=== PATIENT | male | born 1950 | race Caucasian/White ===

== ENCOUNTER → 2016-11-10 | Day surgery (SDC) | payer OTHER ==
[2016-10-28 12:41] LABS: BASO % 0.2 %; BASO ABS # 0.02 K/uL (0-0.2); COMPLETE YES; EOS % 1.7 %; HEMATOCRIT 41.8 % (42-52); IG% 0.5 %; LYMPH % 22.1 %; LYMPH ABS # 2.19 K/uL (1.2-3.4); MEAN CELL VOLUME 94.8 fL (80-100); MEAN CORPUSCULAR HEMOGLOBIN 31.1 pg (25-34); MEAN CORPUSCULAR HGB CONC 32.8 g/dl (32-36); MEAN PLATELET VOLUME 9.6 fL (7.4-10.4); MONO % 6.5 %; PLATELET COUNT 190 K/uL (130-400); RED BLOOD COUNT 4.41 M/uL (4.7-6.1); WHITE BLOOD COUNT 9.93 K/uL (4.8-10.8)
[2016-10-28 12:44] LABS: URINE APPEARANCE CLOUDY (CLEAR); URINE BILIRUBIN NEG (NEG); URINE COLOR DK YELLOW; URINE EPITHELIAL CELL AUTO >30 /lpf (0-5); URINE NITRITE NEG (NEG); URINE SPECIFIC GRAVITY 1.015 (1.000-1.030); UROBILINOGEN NEG (NEG)
[2016-10-28 12:45] LABS: MANUAL MICROSCOPIC REQUIRED? NO; REVIEW REQ? YES
[2016-10-28 12:50] VITALS: BMI 39.0
--- NOTE | 2016-10-28 13:25 | PAT Medication Instructions ---
Service Date Oct 28, 2016. Current Home Medication List Aspirin (Aspirin Ec Lo-Dose), 81 MG PO HS Atorvastatin (Lipitor), 40 MG PO HS B-Complex W/Biotin & Folic Aci (Vitamin B50 Complex Tr), 1 TAB PO BID Cholecalciferol (Vitamin D3), 5,000 INTERUNIT PO QAM Clopidogrel (Plavix), 75 MG PO QAM Coenzyme J16-Sugmzhkattwwz (Co Q-10 Plus), 1 CAPSULE PO BID Hlkjvxoo-Eksnktpbxwy-Cmtwfxwzq (Hyaluronic Acid), 1 CAP PO BID Fish Oil ([place]-3), 1 CAP PO QAM Metoprolol Tartrate (Lopressor), 100 MG PO QAM Multivitamin (Multivitamin), 1 TAB PO QAM Ranitidine Hcl (Zantac), 150 MG PO BID [Move Free Joint Supp], 1 CAP PO QAM Medication Instructions For Your Scheduled Surgery - Per surgeon's instructions: Aspirin (Aspirin Ec Lo-Dose), 81 MG PO HS Clopidogrel (Plavix), 75 MG PO QAM - Hold the following medications as of 10/29/15: [Move Free Joint Supp], 1 CAP PO QAM Fish Oil ([place]-3), 1 CAP PO QAM Coenzyme Z31-Gkvwutbtgwbpg (Co Q-10 Plus), 1 CAPSULE PO BID Lvjqanpf-Sduuyxjlsrg-Auakjcbbd (Hyaluronic Acid), 1 CAP PO BID - Hold the following medications the morning of surgery: B-Complex W/Biotin & Folic Aci (Vitamin B50 Complex Tr), 1 TAB PO BID Cholecalciferol (Vitamin D3), 5,000 INTERUNIT PO QAM Multivitamin (Multivitamin), 1 TAB PO QAM - Take the following medications the morning of surgery with a sip of water OTHERWISE NOTHING TO EAT OR DRINK AFTER MIDNIGHT: Ranitidine Hcl (Zantac), 150 MG PO BID Metoprolol Tartrate (Lopressor), 100 MG PO QAM - Take the following medications as scheduled the night before surgery: Ranitidine Hcl (Zantac), 150 MG PO BID Atorvastatin (Lipitor), 40 MG PO HS B-Complex W/Biotin & Folic Aci (Vitamin B50 Complex Tr), 1 TAB PO BID If you have any questions please call us at [phone] (Majo West PA-C) or [phone] or [phone]
[2016-10-28 13:27] LABS: BUN/CREATININE RATIO 16.4 (10-20); CALCIUM 9.2 mg/dl (8.5-10.1); CREATININE 1.1 mg/dl (0.60-1.40); POTASSIUM 4.1 mmol/L (3.5-5.1)
[~2016-11-10] VITALS: Ht 185.4 cm; Wt 134.4 kg
[~2016-11-10] MED LIST: ASPI81TA57 PO; ATOR-24 PO; ATROPINE SULFATE 0.1 MG/ML 5ML SYR IV PRN; B-CO1CAP3 PO; B-CO1TAB21 PO; CHOL20007 PO; CHOLCAP5 PO; CIPROFLOXACIN / D5W 400 MG IV SCH; CLOP1TAB15 PO; COEN100C7 PO; COEN1CAP PO; COLL1CAP PO; CONRAY 60% 50 ML VIAL INSTIL ONE; DEXAMETHASONE SOD INJ 4 MG/ML VIAL ONE; EpHEDrine SULFATE 50MG/5ML SYR ONE; EpHEDrine SULFATE INJ 50 MG/ML AMP IV PRN; FAMO20TA PO; FENTANYL CITRATE INJ 50 MCG/1 ML 2 ML VIAL IV PRN; FENTANYL CITRATE INJ 50 MCG/1 ML 2 ML VIAL ONE; FLUMAZENIL 0.1 MG/1 ML 10 ML VIAL IV PRN; GLUC1CAP33 PO; GLYCOPYRROLATE INJ 0.2 MG/ML VIAL ONE; HYDROmorphone INJ 2 MG/ML SYR/VIAL IV PRN; LABETALOL HCL IV 5 MG/ML 20ML IV PRN; LACTATED RINGER'S 1000ML 1,000 ML IV SCH; LIDOCAINE HCL 2% 2 ML VIAL (20MG/ML) ONE; LPT/40 PO; MEPERIDINE HCL 25 MG/ML CARP IV PRN; METO-596 PO; METO25TA3 PO; MIDAZOLAM HCL 1 MG/ML 2ML VIAL ONE; MOVE FREE JOINT PO; MULT-506 PO; NALOXONE HCL 0.4 MG/1 ML VIAL/CARP IV PRN; NEOMYCIN/POLYMYX/BACITR OINT 15 GM TUBE TOP ONE; NEOSTIGMINE METHYLSULFATE 5 MG/5 ML SYR ONE; OMEG10007 PO; ONDANSETRON INJ 2 MG/ML 2 ML VIAL IV PRN; ONDANSETRON INJ 2 MG/ML 2 ML VIAL ONE; OXYC-57 PO; OXYCODONE/ACETAMINOPHEN 5-325 TAB PO PRN; PHENYLEPHRINE 100MCG/ML 5ML SYR IV PRN; PHENYLEPHRINE 100MCG/ML 5ML SYR ONE; PHENYLEPHRINE HCL INJ 10 MG/ML VIAL ONE; PROPOFOL IV EMULSION 10 MG/ML 20 ML VIAL IV ONE; RANI150T3 PO; ROCURONIUM BROMIDE 10 MG/ML 5 ML VIAL ONE; [UNRECOGNIZED DRUG - OTHER]
[2016-11-10 08:52] VITALS: BP 132/71; PULSE 76; TEMP 37; O2SAT 97; Ht 185.4 cm; Wt 134.4 kg
--- NOTE | 2016-11-10 09:38 | History & Physical Bridge Note ---
H&P Re-Evaluation Bridge Note: I have examined the patient, reviewed the History & Physical and in the interval since the performance of the History & Physical I have noted the following changes of clinical significance: No changes noted
--- NOTE | 2016-11-10 11:33 | [facility] Post Operative Brief Note ---
Immediate Operative Summary Operative Date Nov 10, 2016. Pre-Operative Diagnosis Prostate cancer Post-Operative Diagnosis Prostate cancer Procedure(s) Performed Volume/brachy Therapy Surgeon Dr. Oliver Shear Tender Surgeon(s) Dr. Nereida Field Estimated Blood Loss 0ml Findings small gland Specimens No pathology specimens per surgeon
--- NOTE | 2016-11-10 11:36 | Discharge Instructions ---
Discharge Instructions Visit Reason for Visit: Prostate Cancer Discharge Discharge Diagnosis / Problem: prostate cancer Discharge Goals Goal(s): Therapeutic intervention Activity Recommendations Activity Limitations: per Instructions/Follow-up section (see radiation saftey sheet you got in radiation oncology take it easy today) Anesthesia . Post Anesthesia Instructions: If you have had General Anesthesia or IV Sedation: * Do not drive today. * Resume driving when surgeon permits. * Do not make important decisions or sign legal documents today. * Call surgeon for: 1. Temperature elevations greater than 101 degrees F. 2. Uncontrollable pain. 3. Excessive bleeding. 4. Persistent nausea and vomiting. 5. Medication intolerance (nausea, vomiting or rash). * For nausea and vomiting use only clear liquids such as: tea, soda, bouillon until nausea subsides, then gradually increase diet as tolerated. * If you have any concerns or questions, call your surgeon's office. If physician is unavailable and it is an emergency, call 911 or go to the nearest emergency room. . Diet Recommendations Recommended Home Diet: resume previous diet Procedures Procedures Performed: Volume/brachy Therapy Pending Studies Studies pending at discharge: yes List of pending studies: pt to go to radiation oncology befor going home Medical Emergencies . Who to Call and When: Medical Emergencies: If at any time you feel your situation is an emergency, please call 911 immediately. . Non-Emergent Contact Non-Emergency issues call your: Urologist . . "Provider Documentation" section prepared by Lyndon Oliver. [facility] Monitoring Program Search Results: patient reviewed within database
--- NOTE | 2016-11-10 11:39 | DIAGNOSTIC IMAGING REPORT ---
FLUOROSCOPIC SPOT FILM OF THE PELVIS CLINICAL HISTORY: BRACHY THERAPY prostate carcinoma COMPARISON STUDY: No previous studies for comparison. FINDINGS: A single intraoperative fluoroscopic spot images provided for interpretation. 2 seconds of fluoroscopic time was utilized. There is a Belle catheter within the bladder. There is contrast in the bladder. Multiple brachytherapy prostate radiation therapy seeds are visualized IMPRESSION: Intraoperative fluoroscopic spot image as described above. Electronically signed by: Luis Johnson M.D. 11/10/2016 11:37 AM Dictated Date/Time: 11/10/2016 11:37 AM
--- NOTE | 2016-11-10 12:16 | Anesthesiology Progress Note ---
Anesthesia Post Op Note Date & Time Nov 10, 2016 at 12:16 Vital Signs Pain Intensity: 0 Vital Signs Past 12 Hours Date Time Temp Pulse Resp B/P Pulse Ox O2 Delivery O2 Flow Rate FiO2 11/10/16 12:08 36.3 20 121/71 96 Nasal Cannula 2 11/10/16 11:58 110/77 11/10/16 11:55 78 17 92 11/10/16 11:55 78 17 11/10/16 11:53 123/78 11/10/16 11:50 81 20 11/10/16 11:50 81 20 91 11/10/16 11:49 81 23 90 11/10/16 11:49 81 23 11/10/16 11:48 121/77 11/10/16 11:44 83 23 11/10/16 11:44 82 23 95 11/10/16 11:43 125/78 11/10/16 11:42 36.2 82 16 119/74 99 Mask 10 11/10/16 11:39 79 24 11/10/16 11:39 79 24 100 11/10/16 11:38 111/68 11/10/16 11:34 80 22 117/75 100 11/10/16 11:34 79 22 11/10/16 08:52 37 76 18 132/71 97 Room Air Notes Mental Status: alert / awake / arousable, participated in evaluation Pt Amnestic to Procedure: Yes Nausea / Vomiting: adequately controlled Pain: adequately controlled Airway Patency, RR, SpO2: stable & adequate BP & HR: stable & adequate Hydration State: stable & adequate Anesthetic Complications: no major complications apparent
[2016-11-10 12:30] VITALS: BP 117/69; PULSE 72; TEMP 36.4; O2SAT 98
[2016-11-10 12:58] VITALS: BP 119/74; PULSE 77; TEMP 36.8; O2SAT 94
[2016-11-10 13:30] VITALS: BP 112/64; PULSE 76; TEMP 36.8; O2SAT 95
--- NOTE | 2016-11-12 13:19 | OPERATIVE REPORT ---
DATE OF OPERATION: 11/10/2016 PREOPERATIVE DIAGNOSIS: PSA 11.5 biopsy stage T2c, [place] 4+5 adenocarcinoma of the prostate. POSTOPERATIVE DIAGNOSIS: PSA 11.5 biopsy stage T2c, [place] 4+5 adenocarcinoma of the prostate. PROCEDURE: Transperineal prostate brachytherapy with live dosimetry. FINDINGS: 16 mL gland. SURGEON: Dr. Oliver. PHYSICIST: Hang Conrad. RADIATION ONCOLOGIST: Dr. Jasmine. ANESTHESIA: General. DRAINS: Temporary Belle catheter in the bladder. COMPLICATIONS: None. SPECIMENS: None. INDICATIONS: The patient has been diagnosed with an adenocarcinoma of the prostate and has elected to undergo transperineal brachytherapy as part of his treatment and is being brought in now for the procedure. OPERATION AND FINDINGS: The patient was correctly identified and brought to the outpatient surgery suite. After the induction of an adequate level of anesthesia, the patient was placed in the dorsal lithotomy position. The patient's lower abdomen, genitalia, and perineum were then prepped with Hibiclens. A Belle catheter was then inserted per the urethra into the bladder using usual sterile technique and the urine was drained and then 100 mL of mixture of saline and iodinated contrast material was instilled through the Belle into the bladder. Aerated gel was then placed within the lumen of the catheter, and the catheter was then plugged. The patient's scrotum was then taped upward using a Steri-Drape to keep it out of the way of the perineum. A transrectal ultrasound probe was then gently inserted into the patient's rectum and attached to the brachytherapy sled, and adjustments were made to the brachytherapy sled using the template projected on the ultrasound screen to get the transrectal probe and the image of the prostate into the proper position. After getting the probe adjusted properly, the prostate was scanned from its base to its apex with the images being transmitted to the treatment planning computer. While the radiation oncologist and physicist were performing a live implant plan, empty needles were placed through the template and positioned in the prostate around the entire periphery of the prostate. Each needle was spaced approximately 1 cm apart from its neighbor and again this was done circumferentially around the prostate. At this point, Dr. Jasmine used a SRIDEVI applicator to place the seeds into the prostate through these peripherally placed needles with the number and position of the seeds based on the plan that had just been created. This was done live so live dosimetry was being calculated with each seed placement. After the peripheral seeds were placed and all the peripheral needles removed, the radiation oncologist and physicist then planned for the central needles and these needles were placed in their proper positions based on the plan. After completing this portion, again the case was turned over to Dr. Jasmine for placement of the central seeds. A total number of 14 needles were used to implant 38 CS 131 seeds. After completing the implant, a fluoroscopic image was taken to check to make sure that there were no seeds placed within the bladder and a final picture was taken of this. One final inspection was then done looking at the plan and the seed implant and after completion of this final inspection the transrectal probe was removed. The patient's bladder was drained through the Belle catheter. A Keno counter was used to check for any radioactivity remaining in the needles and in the urine. The Belle catheter was then left indwelling. The patient's perineum was then washed and dried, and an antibiotic ointment was applied. The patient tolerated the procedure well and was transferred to the Recovery Room in stable condition. I attest to the content of the Intraoperative Record and any orders documented therein. Any exceptio ns are noted below.
== END | disposition home or self-care (01) ==
LOC: C.ACU 08:22
PROVIDERS: ATTEND Urology
DX: C61 Malignant neoplasm of prostate (principal); E78.00 Pure hypercholesterolemia, unspecified; I10 Essential (primary) hypertension; N20.0 Calculus of kidney; Z98.890 Other specified postprocedural states

== ENCOUNTER → 2017-03-25 | Outpatient (CLI) | payer OTHER ==
[~2017-03-25] MED LIST changes: -ASPI81TA57 PO; -ATOR-24 PO; -ATROPINE SULFATE 0.1 MG/ML 5ML SYR IV PRN; -B-CO1TAB21 PO; -CHOL20007 PO; -CIPROFLOXACIN / D5W 400 MG IV SCH; -COEN1CAP PO; -CONRAY 60% 50 ML VIAL INSTIL ONE; -DEXAMETHASONE SOD INJ 4 MG/ML VIAL ONE; -EpHEDrine SULFATE 50MG/5ML SYR ONE; -EpHEDrine SULFATE INJ 50 MG/ML AMP IV PRN; -FENTANYL CITRATE INJ 50 MCG/1 ML 2 ML VIAL IV PRN; -FENTANYL CITRATE INJ 50 MCG/1 ML 2 ML VIAL ONE; -FLUMAZENIL 0.1 MG/1 ML 10 ML VIAL IV PRN; -GLYCOPYRROLATE INJ 0.2 MG/ML VIAL ONE; -HYDROmorphone INJ 2 MG/ML SYR/VIAL IV PRN; -LABETALOL HCL IV 5 MG/ML 20ML IV PRN; -LACTATED RINGER'S 1000ML 1,000 ML IV SCH; -LIDOCAINE HCL 2% 2 ML VIAL (20MG/ML) ONE; -MEPERIDINE HCL 25 MG/ML CARP IV PRN; -METO-596 PO; -MIDAZOLAM HCL 1 MG/ML 2ML VIAL ONE; -MOVE FREE JOINT PO; -NALOXONE HCL 0.4 MG/1 ML VIAL/CARP IV PRN; -NEOMYCIN/POLYMYX/BACITR OINT 15 GM TUBE TOP ONE; -NEOSTIGMINE METHYLSULFATE 5 MG/5 ML SYR ONE; -ONDANSETRON INJ 2 MG/ML 2 ML VIAL IV PRN; -ONDANSETRON INJ 2 MG/ML 2 ML VIAL ONE; -OXYC-57 PO; -OXYCODONE/ACETAMINOPHEN 5-325 TAB PO PRN; -PHENYLEPHRINE 100MCG/ML 5ML SYR IV PRN; -PHENYLEPHRINE 100MCG/ML 5ML SYR ONE; -PHENYLEPHRINE HCL INJ 10 MG/ML VIAL ONE; -PROPOFOL IV EMULSION 10 MG/ML 20 ML VIAL IV ONE; -RANI150T3 PO; -ROCURONIUM BROMIDE 10 MG/ML 5 ML VIAL ONE; -[UNRECOGNIZED DRUG - OTHER]
[2017-03-25 14:52] VITALS: BP 142/91; PULSE 70; TEMP 37; O2SAT 93
--- NOTE | 2017-03-25 16:34 | Radiation Oncology Follow-Up ---
Radiation Oncology Follow-Up Date of Visit Mar 25, 2017. (Elizabeth Mckeon PA-C) Reason For Visit One-month one-month follow-up (Elizabeth Mckeon PA-C) Radiation Completion Date 02/17/17 (Elizabeth Mckeon PA-C) Diagnosis (1) Prostate cancer Status: Acute Onset Date: 09/15/2016 Location: both lobes of the prostate Histology Subtype: adenocarcinoma Stage: ll Permanent Comment: STAGING: Adenocarcinoma, [place] 4 + 5, PSA 11.5, cT2c, group IIB, high risk -Prostate Volume - 23.14 cc -Biopsy Date - 09/15/2016 (Dr. Williamson) Initiation of hormonal suppression. Lupron 45 mg IM 10/23/2016 -Prostate seed implant - 11/10/2016 - 85 Gy -External beam radiation therapy - Completed 02/17/17. Received 45 Gy -Receiving concurrent long-term androgen deprivation therapy - 18 to 28 months total Last Edited By: Elizabeth Mckeon on March 01, 2017 13:50 (Elizabeth Mckeon PA -C) History of Present Illness Mr. Whelan is a 66 year old male who initially presented with an elevated PSA in May 2015 to 6.91. At that point, the patient did elect to undergo a repeat PSA which completed on 02/04/2016 and was 9.27. The patient then underwent shoulder surgery and then more recently he was seen in consultation by Dr. Williamson who recommended a transrectal ultrasound-guided biopsy. The patient underwent a transrectal ultrasound-guided biopsy on 09/15/2016 and pathology revealed prostate adenocarcinoma in 13/14 cores. The pathology revealed [place] 4+5 in multiple cores of perineural invasion. The patient is scheduled for a bone scan and CT abdomen/pelvis and both are currently pending. Dr. Williamson did discuss treatment options including surgery and radiation therapy. Dr. Williamson did offer to refer the patient to a robotic urologic surgeon for discussion of a robotic prostatectomy however the patient has deferred that consultation at this point. We are now seeing the patient in consultation to discuss the role of radiation therapy. Overall, the patient is doing relatively well. He denies any significant urinary symptoms. His IPSS score is 1/35. His EPIC QoL score is 4/60. He has minimal issues with potency at this point; he has expressed that that is not a significant priority for him at this point. He has no history of inflammatory bowel disease or TURP of the prostate gland. His options of treatment were reviewed with him. Ultimately his decision was to undergo treatment with tri-modality. He began hormone suppression. He then had a prostate seed implant followed by IMRT/IGRT. 38 seeds were placed and he received 85 Gy. With the IMRT he received 45 Gy. (Elizabeth Mckeon PA-C) Interim History He's been doing well over the past month. He does not require any medication to help with urination. His AUA score was 2. His AUA score at the end of treatment was 3. He completed and expanded prostate cancer index composite for clinical practice and gave a score of 0 12 and urinary incontinence symptoms. He gave a score of 0 12 and urinary irritation symptoms. He was score 0 of 12 bowel symptoms. He gave a score of 9 of 12 sexual symptoms. He gave a score 1 of 12 in hormonal vitality symptoms. His total was 10 of 60. He is on Lupron therapy and knows that this is causing the erectile dysfunction. He'll be due for his next injection at the end of March. He has mild hot flashes. He is concerned about insurance coverage for his future injections. (Elizabeth Mckeon PA-C) Allergies Coded Allergies: No Known Allergies (Verified , 11/10/16) Home Medications Scheduled Atorvastatin (Lipitor), 40 MG PO HS B-Complex Vitamins (B Complex), 1 CAP PO DAILY Cholecalciferol (Vitamin D3), 1 CAP PO DAILY Clopidogrel (Plavix), 75 MG PO DAILY Coenzyme Q10 (Ubidecarenone) (Coq10), 1 CAP PO BID Hdiqzlhr-Pjylqstshkz-Uoqvbmldk (Hyaluronic Acid), 1 CAP PO DAILY Famotidine (Acid Control Maximum Stre), 1 TAB PO BID Fish Oil ([place]-3), 1 CAP PO DAILY Glucosamine-Chondroitin (Glucosamine & Chondroitin 500-400 mg), 1 CAP PO DAILY Metoprolol Succinate (Toprol Xl), 1 TAB PO DAILY Multivitamin (Multivitamin), 1 TAB PO DAILY Review of Systems Gastrointestinal: Symptoms: WNL GI Comments: Constipation related to pain medicine use for left shoulder Oral: Symptoms: No Problems Respiratory: Symptoms: WNL Urinary: Symptoms: Incontinence, Nocturia Comments: Nocturia x 1-2, Urge Incontinence, See AUA & EPIC Skin: Symptoms: No Problems Additional Notes: He completed a distress management report and answered "no" to all questions. (Elizabeth Mckeon PA-C) Physical Exam Vital Signs Date Time Temp Pulse Resp B/P (MAP) Pulse Ox O2 Delivery O2 Flow Rate FiO2 03/25/17 14:52 37.0 70 16 142/91 93 Fatigue: None General Appearance: no apparent distress Eyes: normal inspection, EOMI ENT: normal ENT inspection, hearing grossly normal Neck: no adenopathy Respiratory/Chest: lungs clear, no respiratory distress, no accessory muscle use Cardiovascular: regular rate, rhythm, no gallop, no murmur Extremities: no pedal edema Neurologic/Psychiatric: no motor/sensory deficits, alert, normal mood/affect Skin: warm/dry (Elizabeth Mckeon PA-C) Laboratory Studies Test 03/25/17 15:35 (Elizabeth Mckeon PA-C) Assessment & Plan Plan: The patient was seen and examined by Dr. Hansen. A PSA was drawn today. He'll be notified as to results. He'll be due for his next Lupron injection at the end of March. The seed implant was performed with the assistance of Dr. Oliver. We are going to contact his office to see if they can follow through with his hormone suppression and follow-up. We asked him to return to our office in 6 months. Today we completed a cancer survivorship care plan. A copy of the document was given to the patient. He may call if he has any questions or concerns in the interim. (Elizabeth Mckeon PA-C) I agree with note created by Elizabeth Mckeon PA-C. I reviewed the patient's chart and information with her. I have examined and evaluated the patient. I reviewed relevant clinical information and answered the patient's and/or family' s questions. (Veeral. Hansen MD) Total Time In Follow-Up I spent 20 minutes speaking to the patient and performing examination. I spent 20 minutes reviewing information, preparing the survivorship document, and completing this note. (Elizabeth Mckeon PA-C) I spent 15 minutes examining and counseling the patient. (Veeral. Hansen MD) Copy To Dalton Hylton M.D. ([facility])
== END | disposition home or self-care (01) ==
LOC: C.ONC 14:46
PROVIDERS: ATTEND Physician Assistant Medical
DX: Z08 Encounter for follow-up examination after completed treatment for malignant neoplasm (principal); Z92.3 Personal history of irradiation; Z85.46 Personal history of malignant neoplasm of prostate

== ENCOUNTER → 2018-06-09 | Day surgery (SDC) | payer OTHER ==
[2018-06-02 13:12] VITALS: Ht 188 cm; Wt 139.6 kg
[~2018-06-09] VITALS: Ht 188 cm; Wt 139.6 kg
[~2018-06-09] MED LIST changes: +ATROPINE SULFATE 0.1 MG/ML 5ML SYR IV PRN; +CEFAZOLIN 3000MG IV PUSH 22.5 ML IV SCH; +CHOL2000 PO; -CHOLCAP5 PO; +EpHEDrine SULFATE INJ 50 MG/ML AMP IV PRN; +FENTANYL CITRATE INJ 50 MCG/1 ML 2 ML VIAL IV PRN; +FENTANYL CITRATE INJ 50 MCG/1 ML 2 ML VIAL ONE; +HYDR-5688 PO; +HYDROCODONE/ACETAMIN 5/325MG TAB PO PRN; +LACTATED RINGER'S 1000ML 1,000 ML IV SCH; +LIDOCAINE HCL 2% 2 ML VIAL (20MG/ML) ONE; +LIDOCAINE HCL 2% LOCAL 20 ML VIAL ONE; +METO100T44 PO; -METO25TA3 PO; +MIDAZOLAM HCL 1 MG/ML 2ML VIAL ONE; +ONDANSETRON INJ 2 MG/ML 2 ML VIAL IV PRN; +PROPOFOL IV EMULSION 10 MG/ML 20 ML VIAL ONE; +SODIUM CHLORIDE 0.9% 1000ML 1,000 ML IV SCH
--- NOTE | 2018-06-09 14:28 | Discharge Instructions-SurgCtr ---
Discharge Instructions Date of Service Jun 09, 2018. Visit Reason for Visit: Right Long And Ring Trigger Fingers Discharge Discharge Diagnosis / Problem: SAME ABOVE Discharge Goals Goal(s): Decrease discomfort, Improve function Activity Recommendations Activity Limitations: as noted below Lifting Limitations: gradually increase as tolerated Exercise/Sports Limitations: gradually increase as tolerated Shower/Bathe: may shower/bathe in 3 days Anesthesia . Post Anesthesia Instructions: If you have had General Anesthesia or IV Sedation: * Do not drive today. * Resume driving when surgeon permits. * Do not make important decisions or sign legal documents today. * Call surgeon for: 1. Temperature elevations greater than 101 degrees F. 2. Uncontrollable pain. 3. Excessive bleeding. 4. Persistent nausea and vomiting. 5. Medication intolerance (nausea, vomiting or rash). * For nausea and vomiting use only clear liquids such as: tea, soda, bouillon until nausea subsides, then gradually increase diet as tolerated. * If you have any concerns or questions, call your surgeon's office. If physician is unavailable and it is an emergency, call 911 or go to the nearest emergency room. . Instructions / Follow-Up Instructions / Follow-Up MEDICATIONS: * Resume previous medications unless instructed otherwise by your surgeon. * Always take pain medication on a full stomach or with food to avoid upset stomach. * Do not drink alcohol or drive while taking narcotics. * Ibuprofen or Tylenol may be taken if narcotic not needed. SPECIAL CARE INSTRUCTIONS: __ None _X_ Keep extremity elevated and iced x 48 hours; apply ice 20-30 minutes 8-10 times/day. May remove at night. __ Sling __24 hrs/day __ Remove at night __ Shoulder Immobilizer __ 24 hrs/day __ Remove at night _X_ Dressing __ Maintain until seen in office, may shower with plastic over site _X_ Remove dressings in 48 hours and then may shower _X_ Cover incisions with band-aids after showering __ Do not remove steri-strips Call physician if chills or temperature rises above 102 degrees or pain unrelieved by prescribed pain medications at . . Diet Recommendations Home Diet: no limitations Fluid Restriction: None Pending Studies Studies pending at discharge: no Medical Emergencies . Who to Call and When: Medical Emergencies: If at any time you feel your situation is an emergency, please call 911 immediately. . Non-Emergent Contact Non-Emergency issues call your: Surgeon Call Non-Emergent contact if: your pain is not controlled, wound has increased drainage, wound has increased redness . . "Provider Documentation" section prepared by Rhett Doherty. .
--- NOTE | 2018-06-09 14:39 | [facility] Post Operative Brief Note ---
Immediate Operative Summary Operative Date Jun 09, 2018. Pre-Operative Diagnosis Right Long And Ring Trigger Finger Post-Operative Diagnosis Same Procedure(s) Performed Right Long And Ring Trigger Finger Releases Surgeon Dr. Rainey Business Intelligence Manager Surgeon(s) Graham Doherty PA-C Estimated Blood Loss 0 mL Findings Consistent with Post-Op Diagnosis Specimens None Anesthesia Type MAC
[2018-06-09 14:44] VITALS: TEMP 36.5
[2018-06-09 15:12] VITALS: BP 129/81; PULSE 67; O2SAT 95
--- NOTE | 2018-06-09 15:13 | Anesthesia Progress Nt - [facility] ---
Anesthesia Post Op Note Date & Time Jun 09, 2018 at 15:13 Vital Signs Pain Intensity: 0 Vital Signs Past 12 Hours Date Time Temp Pulse Resp B/P (MAP) Pulse Ox O2 Delivery O2 Flow Rate FiO2 06/09/18 14:44 36.5 71 16 141/87 (105) 96 Room Air 06/09/18 12:28 36.4 94 18 178/128 (145) 95 Room Air Notes Mental Status: alert / awake / arousable, participated in evaluation Pt Amnestic to Procedure: Yes Nausea / Vomiting: adequately controlled Pain: adequately controlled Airway Patency, RR, SpO2: stable & adequate BP & HR: stable & adequate Hydration State: stable & adequate Anesthetic Complications: no major complications apparent
--- NOTE | 2018-06-09 19:08 | OPERATIVE REPORT ---
DATE OF OPERATION: 06/09/2018 PREOPERATIVE DIAGNOSIS: Chronic trigger finger of the right long and ring fingers. POSTOPERATIVE DIAGNOSIS: Same. PROCEDURE: Open trigger finger release of the right long and the right ring fingers. SURGEON: Freddy Rainey DO SCREW MACHINE OPERATOR: Rhett Doherty PA-C, whose assistance was necessary for retraction and closure. ANESTHESIA: Local with sedation. COMPLICATIONS: None. CONDITION: Stable to PACU. INDICATIONS: Martin is a pleasant 67-year-old male who presented to my office with complaints of triggering and pain around the A1 aliyah of his right long and ring fingers. After failing conservative treatment, he elected to undergo open trigger finger release. DESCRIPTION OF PROCEDURE: On 06/09/2018, he arrived at [facility] for the above procedure. He was seen in the preoperative holding area and the operative extremity was identified and signed. He was given a preoperative antibiotic, taken back to the operating room, laid on the table in supine position, and put under basic sedation. The right hand was then prepped and draped in sterile fashion. Time-out was done. The patient's operative extremity was properly identified. The surgical site was anesthetized with 10 mL of lidocaine. A longitudinal incision was made directly over the A1 aliyah of the ring finger first. Dissection was taken down through the fascia with care not to disrupt the neurovascular structures. The A1 aliyah was easily identified. A knife and tenotomy scissors were used to completely release the A1 aliyah. The tendon was then pulled out of the wound to ensure complete release. The same procedure was done on the long finger. Dissection was taken down and the A1 aliyah was fully released. Tourniquet was deflated, hemostasis was obtained, and incisions were closed with 4-0 nylon suture. He was placed in a soft dressing and taken to the postanesthesia care unit in stable condition and he tolerated the procedure well. I attest to the content of the Intraoperative Record and any orders documented therein. Any exception s are noted below.
== END | disposition home or self-care (01) ==
LOC: X.SURG 11:58
PROVIDERS: ATTEND Orthopaedic Surgery
DX: M65.331 Trigger finger, right middle finger (principal); M65.341 Trigger finger, right ring finger; I25.10 Atherosclerotic heart disease of native coronary artery without angina pectoris; I10 Essential (primary) hypertension; Z85.46 Personal history of malignant neoplasm of prostate; Z96.612 Presence of left artificial shoulder joint

== ENCOUNTER 2022-07-28 15:03 | Observation (INO) ==
[2022-07-28 16:19] LABS: iSTAT Creatinine 1.6 mg/dl (0.6-1.3); iSTAT Hemoglobin 13.3 g/dl (14.0-18.0); iSTAT Ionized Calcium 1.13 mmol/l (1.12-1.32); iSTAT Potassium 4.5 mmol/L (3.3-5.0)
--- NOTE | 2022-07-28 16:22 | Electrocardiogram Report ---
Test Reason : Blood Pressure : / mmHG Vent. 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
[2022-07-28 16:27] LABS: Hematocrit (blood only) 40.3 % (40.1-51.0); Mean Corpuscular Hemoglobin 31.6 pg (25.0-34.0); Mean Corpuscular Hgb Conc 32.3 g/dL (32.0-36.0); Mean Corpuscular Volume 98.1 fL (80.0-100.0); Mean Platelet Volume 9.6 fL (9.4-12.4); Platelet Count 148 K/uL (130-400); RDW Coefficient of Variation 14.9 % (11.5-14.5); Red Blood Count 4.11 M/uL (4.63-6.08); White Blood Count 6.58 K/ul (4.8-10.8)
[2022-07-28 16:35] LABS: INR 1.1 (0.9-1.1); Partial Thromboplastin Ratio 0.9; Partial Thromboplastin Time 24.5 Seconds (21.0-31.0); Prothrombin Time 11.2 Seconds (9.0-12.0)
[2022-07-28] MEDS ORDERED: IOVERSOL 350 MG 100mL Prefilled Syringe IV ONE (16:42)
[2022-07-28 16:50] LABS: Alanine Aminotransferase 17 U/L (7-52); Albumin Globulin Ratio 1.9 (0.9-2); Albumin Level 4.2 gm/dl (3.4-5.0); Alkaline Phosphatase 51 U/L (34-104); Anion Gap 7 (3-11); Aspartate Aminotransferase 22 U/L (13-39); BUN Creatinine Ratio 16.9 (10-20); Bilirubin,Total 0.4 mg/dl (0.2-1.0); Blood Urea Nitrogen 24 mg/dl (6-23); Calcium 8.9 mg/dl (8.5-10.1); Carbon Dioxide 28 mmol/L (21-32); Chloride 104 mmol/L (98-107); Est GFR (African American) 56.8 ml/min; Globulin 2.2 gm/dl (2.5-4.0); Glucose 133 mg/dl (70-99(Fasting)); Magnesium 1.8 mg/dl (1.7-2.4); Potassium 4.6 mmol/L (3.5-5.1); Sodium 139 mmol/L (136-145); Total Protein 6.4 gm/dl (6.0-8.3)
--- NOTE | 2022-07-28 17:03 | Emergency Department Note ---
Impression & Plan Stroke-like symptoms ED Provider Note INFORMANT: Patient ED PROVIDER(S): Cory Meraz MD CHIEF COMPLAINT: Aphasia PLAN: Disposition: Admitted Condition: Good Outpatient prescription management: none Referral: None MEDICAL DECISION MAKING: Patient presented with strokelike symptoms that had resolved completely before ED arrival. He was not made a stroke alert as he was asymptomatic and had NIH of 0. Patient was evaluated. He had a nonfocal examination. A stroke work-up was initiated. CT imaging of the head and angiography did not reveal any acute findings. The patient's ECG showed a normal sinus rhythm. He does have a mild anemia on CBC. Chemistry panel revealed some mild renal insufficiency but otherwise was unremarkable. LFTs negative. Further management in the hospital will be necessary in light of his strokelike symptoms. This is concerning for at the minimum a TIA. Patient was given aspirin. [facility] was evaluated in the ER and admitted for further management Triage Nursing notes reviewed and agree them. Vital Signs: reviewed and remarkable for no significant abnormalities Differential diagnosis: Infection, dehydration, metabolic abnormality, hypo/hyperglycemia, electrolyte disturbance, anemia, hypoxia, cardiac sources, intracerebral event, toxicologic, neurologic, as well as other pathologies. Diagnostics interpreted by me: ECG: Twelve-lead ECG reveals normal sinus rhythm at 76 bpm. Sinus arrhythmia present. Lateral and inferior Q waves present. No ST elevation or depression. Cardiac Monitoring: Cardiac monitoring ordered by me: The patient was placed on continuous cardiac monitoring and observed. It revealed a normal sinus rhythm at 77 beats per minute without ectopy or evidence of dysrhythmia. Imaging studies: CT angiography and CT head negative. I refer you to the EMR for further details. HPI: The patient is a 72year old male who presents to the Emergency Room with complaints of feeling off balance and difficulty getting his words out. This started about a hour prior to arrival and is currently resolved. Patient states it lasted about 5 minutes but the thinks may be upwards of 20 minutes.. The patient also notes the following associated symptoms, on and off visual disturbance for the last 3 to 4 weeks described as light flashing. Patient denies any diplopia. He notes he has been seen by ophthalmology and no ocular findings were discovered. The patient has taken no medication for relieving factors. Current pain is rated as 2/10. Patient notes some low back pain that he states was from carrying heavy bags but that is not acute. Pt denies LOC, headache, fevers, chills, diaphoresis, neck pain, chest pain, breathing difficulties, nausea, vomiting, abdominal pain, melena, hematochezia, urinary symptoms, numbness, weakness, lymphadenopathy, rash, or other complaints. ROS: See above HPI for pertinent positives & negatives. A total of 10 systems reviewed and were otherwise negative. PAST MEDICAL HISTORY:See Below , CAD PAST SURGICAL HISTORY:See Below, FAMILY HISTORY:See Below SOCIAL HISTORY:See Below, HOME MEDICATIONS:See Below ALLERGIES:See Below VITALS:See Below PHYSICAL EXAMINATION: GENERAL: Awake, alert, well-appearing, in no distress HENT: Normocephalic, atraumatic. Oropharynx unremarkable. EYES: Normal conjunctiva. Sclera non-icteric. PERRLA. EOMI. No nystagmus NECK: Inspection normal. Non-tender. Supple. No nuchal rigidity. FROM. No masses. RESPIRATORY: Clear to auscultation. No wheezes. No rales. Normal respiratory effort. CARDIAC: Normal rate. Normal rhythm. No murmurs. No rubs. Extremities warm and well perfused. Pulses equal. No JVD. GI: Soft, non-distended. No tenderness to palpation. No rebound or guarding. No masses. RECTAL: Deferred. MUSCULOSKELETAL: Atraumatic. Chest examination reveals no tenderness. The back is symmetrical on inspection without obvious abnormality. There is no CVA tenderness to palpation. No joint edema. LOWER EXTREMITIES: Calves are equal size bilaterally and non-tender. No edema. No discoloration. NEURO: Normal sensorium. No sensory or motor deficits noted. Rapid alternating movements. Speech clear. Normal [id number]. No drift. SKIN: No rash or jaundice noted. Cory Meraz MD Past Med/Surg History Medical History (Updated 07/28/22 @ 17:03 by Cory Meraz MD) Nephrolithiasis Urinary symptom or sign Surgical History (Updated 07/28/22 @ 18:22 by Sonal Bautista PA-C) Hx of dissecting abdominal aortic aneurysm repair Hx of heart artery stent S/P triple vessel bypass Family History (Updated 07/28/22 @ 18:23 by Sonal Bautista PA-C) Mother Thoracic aortic aneurysm Grandfather (Maternal) Heart disease Brother Heart disease Brother Heart disease Brother Heart disease Social History Smoking Status: Never smoker Second Hand Exposure: No; Do You Dip or Chew Tobacco: No; Tobacco Cessation Education Requested by Patient: No Hx Alcohol Use: Yes Alcohol type: beer Hx Substance Use: No Preferred Language: Ukrainian Communication Ability: Effective Gun Welder Required: No Beliefs That Will Affect Care: None Current Living Situation: Spouse Other Information That Helps Us Care for You: No Feels Safe at Home: Yes Safety Concerns: Feels Safe At This Time Assistive Devices: None Allergies Allergies Allergy/AdvReac Type Severity Reaction Status Date / Time No Known Allergies Allergy Mild Verified 07/28/22 17:50 Home Meds Home Medications Medication Instructions Recorded Confirmed cyclobenzaprine 10 mg tablet 10 mg PO BID PRN MUSCLE SPASMS 12/22/21 07/28/22 finasteride 1 mg tablet 1 mg PO DAILY 12/22/21 07/28/22 nitroglycerin 0.4 mg sublingual 0.4 mg sublingual DAILY PRN Chest 12/22/21 07/28/22 tablet Pain rosuvastatin 40 mg tablet (Crestor) 40 mg PO DAILY 12/22/21 07/28/22 aspirin 81 mg tablet,delayed 81 mg PO DAILY 07/28/22 07/28/22 release cholecalciferol (vitamin D3) 25 25 mcg PO DAILY 07/28/22 07/28/22 mcg (1,000 unit) capsule (Vitamin D3) coenzyme Q10 100 mg capsule 100 mg PO DAILY 07/28/22 07/28/22 (CoQ-10) ezetimibe 10 mg tablet 10 mg PO DAILY 07/28/22 07/28/22 famotidine 20 mg tablet (Acid 20 mg PO BID 07/28/22 07/28/22 Controller) ferrous sulfate 325 mg (65 mg 325 mg PO Q OTHER DAY 07/28/22 07/28/22 iron) tablet furosemide 40 mg tablet 40 mg PO DAILY 07/28/22 07/28/22 glucosamine sulf dipot 2 cap PO DAILY 07/28/22 07/28/22 chlr,msm,chond 550 mg-C 30 mg-geo 1 mg capsule (Glucosamine Chondroitin) lutein 20 mg tablet 20 mg PO DAILY 07/28/22 07/28/22 metoprolol succinate 100 mg 100 mg PO DAILY 07/28/22 07/28/22 tablet,extended release 24 hr multivitamin 1 tab PO DAILY 07/28/22 07/28/22 omega-3 fatty acids-fish oil 684 1 cap PO DAILY 07/28/22 07/28/22 mg-1,200 mg capsule,delayed release Results & Data (ED) Vital Signs Vital Signs - 24 hr 07/28/22 15:05 07/28/22 15:34 07/28/22 16:03 Temperature 36.9 C Temperature Source Temporal Artery Scan Pulse Rate 66 77 Pulse Rate [Radial] 74 Pulse Rhythm Regular Pulse Rhythm [Radial] Regular Pulse Strength [Radial] Normal Respiratory Rate 19 18 18 Respiratory Effort / Characteristics Non-Labored Spontaneous Non-Labored Spontaneous Respiratory Depth Normal Normal Respiratory Pattern Regular Blood Pressure 150/93 H Blood Pressure [Right Arm] 166/97 H Blood Pressure Mean 112 Blood Pressure Mean [Right Arm] 120 Blood Pressure Position [Right Arm] Lying Pulse Oximetry 98 98 98 Oxygen Delivery Method Room Air Room Air Room Air Sepsis Recent Fever Within 48 Hours No Sepsis New/Unexplained Change in Mental Status N/A Sepsis Action Taken by Nursing No Action Required 07/28/22 17:04 Temperature Temperature Source Pulse Rate Pulse Rate [Radial] 71 Pulse Rhythm Pulse Rhythm [Radial] Regular Pulse Strength [Radial] Normal Respiratory Rate 16 Respiratory Effort / Characteristics Non-Labored Spontaneous Respiratory Depth Normal Respiratory Pattern Regular Blood Pressure Blood Pressure [Right Arm] 160/100 H Blood Pressure Mean Blood Pressure Mean [Right Arm] 120 Blood Pressure Position [Right Arm] Lying Pulse Oximetry 99 Oxygen Delivery Method Room Air Sepsis Recent Fever Within 48 Hours Sepsis New/Unexplained Change in Mental Status Sepsis Action Taken by Nursing Laboratory Data Result diagrams: 07/28/22 16:04 07/28/22 16:04 Lab Results 07/28/22 07/28/22 07/28/22 Range/Units 16:04 16:04 16:04 WBC 6.58 (4.8-10.8) K/ul RBC 4.11 L (4.63-6.08) M/uL Hgb 13.0 L (14.0-18.0) g/dl POC Hgb (14.0-18.0) g/dl Hct 40.3 (40.1-51.0) % POC Hct (42-52) % MCV 98.1 (80.0-100.0) fL MCH 31.6 (25.0-34.0) pg MCHC 32.3 (32.0-36.0) g/dL RDW Std Deviation 54.0 H (36.4-46.3) fL RDW Coeff of Bertha 14.9 H (11.5-14.5) % Plt Count 148 (130-400) K/uL MPV 9.6 (9.4-12.4) fL ESR (0-20) mm/hr PT 11.2 (9.0-12.0) Seconds INR 1.1 (0.9-1.1) APTT 24.5 (21.0-31.0) Seconds PTT Ratio 0.9 POC Sodium (135-144) mmol/L Sodium 139 (136-145) mmol/L POC Potassium (3.3-5.0) mmol/L Potassium 4.6 (3.5-5.1) mmol/L POC Chloride (101-112) mmol/L Chloride 104 (98-107) mmol/L Carbon Dioxide 28 (21-32) mmol/L POC Total CO2 (24-31) mmol/L Anion Gap 7 (3-11) POC Anion Gap (16-25) mmol/L POC BUN (7-18) mg/dl BUN 24 H (6-23) mg/dl Creatinine 1.42 H (0.6-1.4) mg/dl POC Creatinine (0.6-1.3) mg/dl Est Cr Clr Drug Dosing Not Reportable Est GFR ( Amer) 56.8 ml/min Est GFR (Non-Af Amer) 49.0 ml/min BUN/Creatinine Ratio 16.9 (10-20) Glucose 133 H (70-99(Fasting)) mg/dl POC Glucose (other) (70-99) mg/dl Calcium 8.9 (8.5-10.1) mg/dl POC Ioniz Calcium Michelle (1.12-1.32) mmol/l Magnesium 1.8 (1.7-2.4) mg/dl Total Bilirubin 0.4 (0.2-1.0) mg/dl AST 22 (13-39) U/L ALT 17 (7-52) U/L Alkaline Phosphatase 51 (34-104) U/L Total Protein 6.4 (6.0-8.3) gm/dl Albumin 4.2 (3.4-5.0) gm/dl Globulin 2.2 L (2.5-4.0) gm/dl Albumin/Globulin Ratio 1.9 (0.9-2) SARS-CoV-2, RNA, NAAT (NEGATIVE) 07/28/22 07/28/22 07/28/22 Range/Units 16:04 16:07 16:20 WBC (4.8-10.8) K/ul RBC (4.63-6.08) M/uL Hgb (14.0-18.0) g/dl POC Hgb 13.3 L (14.0-18.0) g/dl Hct (40.1-51.0) % POC Hct 39 L (42-52) % MCV (80.0-100.0) fL MCH (25.0-34.0) pg MCHC (32.0-36.0) g/dL RDW Std Deviation (36.4-46.3) fL RDW Coeff of Bertha (11.5-14.5) % Plt Count (130-400) K/uL MPV (9.4-12.4) fL ESR 26 H (0-20) mm/hr PT (9.0-12.0) Seconds INR (0.9-1.1) APTT (21.0-31.0) Seconds PTT Ratio POC Sodium 140 (135-144) mmol/L Sodium (136-145) mmol/L POC Potassium 4.5 (3.3-5.0) mmol/L Potassium (3.5-5.1) mmol/L POC Chloride 103 (101-112) mmol/L Chloride (98-107) mmol/L Carbon Dioxide (21-32) mmol/L POC Total CO2 29 (24-31) mmol/L Anion Gap (3-11) POC Anion Gap 14.0 L (16-25) mmol/L POC BUN 25 H (7-18) mg/dl BUN (6-23) mg/dl Creatinine (0.6-1.4) mg/dl POC Creatinine 1.6 H (0.6-1.3) mg/dl Est Cr Clr Drug Dosing Est GFR ( Amer) ml/min Est GFR (Non-Af Amer) ml/min BUN/Creatinine Ratio (10-20) Glucose (70-99(Fasting)) mg/dl POC Glucose (other) 126 H (70-99) mg/dl Calcium (8.5-10.1) mg/dl POC Ioniz Calcium Michelle 1.13 (1.12-1.32) mmol/l Magnesium (1.7-2.4) mg/dl Total Bilirubin (0.2-1.0) mg/dl AST (13-39) U/L ALT (7-52) U/L Alkaline Phosphatase (34-104) U/L Total Protein (6.0-8.3) gm/dl Albumin (3.4-5.0) gm/dl Globulin (2.5-4.0) gm/dl Albumin/Globulin Ratio (0.9-2) SARS-CoV-2, RNA, NAAT NEGATIVE (NEGATIVE) Administered Medications Famotidine (Famotidine 20 Mg Tab) 20 mg PO BID GIL Stop: 08/27/22 20:59 Last Admin: 07/28/22 21:59 Dose: 20 mg Documented By: DOMINIQUE Sodium Chloride (Nss) 500 mls @ 125 mls/hr IV .Q4H GIL Stop: 07/29/22 06:44 Last Admin: 07/28/22 19:54 Dose: 125 mls/hr Documented By: NASIMA Discontinued Medications Aspirin (Aspirin Chew 324 Mg) 324 mg PO NOW STA Stop: 07/28/22 17:58 Last Admin: 07/28/22 18:26 Dose: 324 mg Documented By: REED Atorvastatin Calcium (Atorvastatin 40 Mg Tab) 80 mg PO NOW STA Stop: 07/28/22 18:07 Last Admin: 07/28/22 18:21 Dose: Not Given Documented By: REED Clopidogrel Bisulfate (Clopidogrel Bisulfate 75 Mg Tab) 75 mg PO NOW ONE Stop: 07/28/22 18:07 Last Admin: 07/28/22 18:26 Dose: 75 mg Documented By: REED Ioversol (Ioversol 350 Mg 100ml Prefilled Syringe) 107 ml IV ONCE ONE Stop: 07/28/22 16:43 Last Admin: 07/28/22 16:42 Dose: 107 ml Documented By: RUPAL Ioversol (Optiray 300 500ml) 113 ml IV ONCE ONE Stop: 07/28/22 19:15 Last Admin: 07/28/22 19:15 Dose: 113 ml Documented By: MAUREEN Imaging Data Radiologist's Impression: Head CTA 07/28/22 16:13 CT angio neck with con, CT angio head wo/w CLINICAL HISTORY: 72 years-old Male with aphasia. Acute strokelike symptoms COMPARISON STUDY: None TECHNIQUE: Following the IV administration of Optiray, CT angiogram of the head and neck was performed from the aortic arch to the skull apex. Images are reviewed in the axial, sagittal, and coronal planes. 3-D MIPS images are created and assessed. IV contrast was administered without complication. Noncontrast head CT was also obtained. All measurements were calculated based on NASCET criteria. A dose lowering technique was utilized adhering to the principles of ALARA. CT DOSE: 1376.22 mGy.cm FINDINGS: CT HEAD: Age-related involutional changes. Mild white matter hypodensities suggest chronic microvascular ischemic disease. No acute intracranial hemorrhage, midline shift, abnormal extra-axial collection, hydrocephalus, acute territorial infarct or intracranial mass. No acute calvarial fracture. Metopic suture. Mastoid air cells and paranasal sinuses are clear. Unremarkable soft tissues. CTA HEAD AND NECK: Prior median sternotomy. There is a 1.2 x 1.7 cm saccular outpouching involving the thoracic aortic arch anteriorly on image 21 series 6 which may be postsurgical. Postoperative changes of the aortic arch. There is patency of the innominate and imaged subclavian arteries. Atherosclerosis of the patent common carotid arteries. Mild to moderate atherosclerotic plaque of the carotid bulbs and proximal cervical segments of the internal carotid arteries without high- grade stenosis. The middle and anterior cerebral arteries are patent. 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 Patent and codominant vertebral arteries. There is mild luminal narrowing at the origin of the left ve rtebral artery secondary to atherosclerotic plaque. The basilar and posterior cerebral arteries are patent. There is origin of the left posterior cerebral artery. Cerebral venous sinuses are patent. There is no abnormal intracranial enhancement. Lung apices are clear without pneumothorax. Unremarkable appearance of the soft tissues. Degenerative changes of the spine. IMPRESSION: 1. No acute intracranial abnormality. 2. Involutional changes with chronic microvascular ischemic disease. 3. CTA of the head and neck demonstrates no aneurysm, dissection, high-grade stenosis or arterial occlusion. 4. Additional findings as above. ACT 112: Negative or not required by law. The above report was generated using voice recognition software. It may contain grammatical, syntax or spelling errors. Electronically signed by: Elder Agudelo M.D. 07/28/2022 5:04 PM Neck CTA 07/28/22 16:13 CT angio neck with con, CT angio head wo/w CLINICAL HISTORY: 72 years-old Male with aphasia. Acute strokelike symptoms COMPARISON STUDY: None TECHNIQUE: Following the IV administration of Optiray, CT angiogram of the head and neck was performed from the aortic arch to the skull apex. Images are reviewed in the axial, sagittal, and coronal planes. 3-D MIPS images are created and assessed. IV contrast was administered without complication. Noncontrast head CT was also obtained. All measurements were calculated based on NASCET criteria. A dose lowering technique was utilized adhering to the principles of ALARA. CT DOSE: 1376.22 mGy.cm FINDINGS: CT HEAD: Age-related involutional changes. Mild white matter hypodensities suggest chr onic microvascular ischemic disease. No acute intracranial hemorrhage, midline shift, abnormal extra-axial collection, hydrocephalus, acute territorial infarct or intracranial mass. No acute calvarial fracture. Metopic suture. Mastoid air cells and paranasal sinuses are clear. Unremarkable soft tissues. CTA HEAD AND NECK: Prior median sternotomy. There is a 1.2 x 1.7 cm saccular outpouching involving the thoracic aortic arch anteriorly on image 21 series 6 which may be postsurgical. Postoperative changes of the aortic arch. There is patency of the innominate and imaged subclavian arteries. Atherosclerosis of the patent common carotid arteries. Mild to moderate atherosclerotic plaque of the carotid bulbs and proximal cervical segments of the internal carotid arteries without high- grade stenosis. The middle and anterior cerebral arteries are patent. 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 Patent and codominant vertebral arteries. There is mild luminal narrowing at the origin of the left vertebral artery secondary to atherosclerotic plaque. The basilar and posterior cerebral arteries are patent. There is origin of the left posterior ce rebral artery. Cerebral venous sinuses are patent. There is no abnormal intracranial enhancement. Lung apices are clear without pneumothorax. Unremarkable appearance of the soft tissues. Degenerative changes of the spine. IMPRESSION: 1. No acute intracranial abnormality. 2. Involutional changes with chronic microvascular ischemic disease. 3. CTA of the head and neck demonstrates no aneurysm, dissection, high-grade stenosis or arterial occlusion. 4. Additional findings as above. ACT 112: Negative or not required by law. The above report was generated using voice recognition software. It may contain grammatical, syntax or spelling errors. Electronically signed by: Elder Agudelo M.D. 07/28/2022 5:04 PM Discharge Plan Visit Data Chief Complaint: Stroke/CVA Symptoms Stated Complaint: POSSIBLE STROKE, SLURRED SPEECH, DIZZY ED Provider: Cory Meraz Discharge Problem: Stroke-like symptoms Patient Disposition: Admitted As Inpatient Discharge Instructions Interventions: ED Discharge Assessment Last Done: 07/28/22 19:54
--- NOTE | 2022-07-28 17:05 | CT Scan Report ---
CT angio neck with con, CT angio head wo/w CLINICAL HISTORY: 72 years-old Male with aphasia. Acute strokelike symptoms COMPARISON STUDY: None TECHNIQUE: Following the IV administration of Optiray, CT angiogram of the head and neck was performe d from the aortic arch to the skull apex. Images are reviewed in the axial, sagittal, and coronal ny gasper. 3-D MIPS images are created and assessed. IV contrast was administered without complication. Non contrast head CT was also obtained. All measurements were calculated based on NASCET criteria. A dos e lowering technique was utilized adhering to the principles of ALARA. CT DOSE: 1376.22 mGy.cm FINDINGS: CT HEAD: Age-related involutional changes. Mild white matter hypodensities suggest chronic microvascular ische more disease. No acute intracranial hemorrhage, midline shift, abnormal extra-axial collection, hydroc ephalus, acute territorial infarct or intracranial mass. No acute calvarial fracture. Metopic suture. Mastoid air cells and paranasal sinuses are clear. Unremarkable soft tissues. CTA HEAD AND NECK: Prior median sternotomy. There is a 1.2 x 1.7 cm saccular outpouching involving the thoracic aortic a rch anteriorly on image 21 series 6 which may be postsurgical. Postoperative changes of the aortic ar ch. There is patency of the innominate and imaged subclavian arteries. Atherosclerosis of the patent common carotid arteries. Mild to moderate atherosclerotic plaque of the carotid bulbs and proximal ce rvical segments of the internal carotid arteries without high-grade stenosis. The middle and anterior cerebral arteries are patent. 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 Patent and codominant alma rosa tebral arteries. There is mild luminal narrowing at the origin of the left vertebral artery secondary to atherosclerotic plaque. The basilar and posterior cerebral arteries are patent. There is or igin of the left posterior cerebral artery. Cerebral venous sinuses are patent. There is no abnormal intracranial enhancement. Lung apices are clear without pneumothorax. Unremarkable appearance of the soft tissues. Degenerative changes of the spine. IMPRESSION: 1. No acute intracranial abnormality. 2. Involutional changes with chronic microvascular ischemic disease. 3. CTA of the head and neck demonstrates no aneurysm, dissection, high-grade stenosis or arterial occ lusion. 4. Additional findings as above. ACT 112: Negative or not required by law. The above report was generated using voice recognition software. It may contain grammatical, syntax o r spelling errors. Electronically signed by: Elder Agudelo M.D. 07/28/2022 5:04 PM
--- NOTE | 2022-07-28 17:56 | History & Physical Report ---
Date of Service July 28, 2022 Assessment & Plan (1) Stroke-like symptoms: Plan: - Admit to PCU for observation - Stroke order set completed, no indication for thrombolytic - CT angio head/neck reviewed and is negative - MRI brain wo contrast ordered, tele. No need for repeat echo as recently done on 07/23. - Check CTA chest with contrast due to recent echo showing echodensity around the aortic arch s/p aortic dissection in December 2021. Discussed about the risks o f BRADEN with repeat contrast as he had CTA head and neck done earlier today- he is willing to proceed- will hydrate adequately and check BMP in am. Has followed with [facility] [place] an [place] routinely. - Consult Neuro - Concern for possible embolic shattering effect with patient reported visual disturbances over the past 3 to 4 weeks, recently completed Zio patch monitoring for 2 weeks, unknown results as he returned this last and has yet to hear from cardiology. F/u on zio patch analysis if available. 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 -Holding lasix with administration of IV fluids secondary to getting a CT of the chest with contrast tonight after already receiving contrast with the CT angio head and neck -Continue antihypertensives -Consider cardiology consultation pending CT chest results (5) Obesity: Plan: -Diet and exercise to be encouraged throughout hospital stay DVT PPx: - teds, scds CODE: Full code Dispo: Observation, PCU on tele History of Present Illness Chief Complaint: Stroke like symptoms Primary Care Provider: Jordon Mccormack MD This is a 72-year-old male with PMHx of CAD with remote coronary intervention with JOSELYN to RCA in Sep 2006, HTN, HLD, obesity, hx of prostate cancer, nephrolithiasis, GERD, vitamin D deficiency. Pt presents with strokelike symptoms including word finding difficulty and dizziness. He was having difficult finishing a sentence and pronouncing words, couldnt say what he wanted to say. This occurred between 2-230pm and lasted for a few minutes. He did not notice any facial drooping or strength discrepancies. This has never happened before. He also notes that he has had visual issues, calling it "shimmering" in both eyes, over the last 3 to 4 weeks but recently sought out ophthalmology appointment and was told that his eyes did not have any issues with them. He recently wore a ZIO monitor under instruction by CHELO in cardiology, as an outpatient due to the visual changes. It has not been read yet as it was just mailed this past . He notes he recently had an ECHO, and LVEF was 55% but nothing else was mentioned to him. Pt does not know of any history of atrial fibrillation or atrial flutter. His symptoms at this point time have completely resolved. CTA of the head and neck are negative for any acute findings. [id number] normal weight at home. Took his normally scheduled medication today. Denies alcohol use or tobacco use. Allergies Allergy/AdvReac Type Severity Reaction Status Date / Time No Known Allergies Allergy Mild Verified 07/28/22 17:50 Home Medications Medication Instructions Recorded Confirmed Type cyclobenzaprine 10 mg tablet 10 mg PO BID PRN MUSCLE SPASMS 12/22/21 07/28/22 History finasteride 1 mg tablet 1 mg PO DAILY 12/22/21 07/28/22 History nitroglycerin 0.4 mg sublingual 0.4 mg sublingual DAILY PRN Chest 12/22/21 07/28/22 History tablet Pain rosuvastatin 40 mg tablet (Crestor) 40 mg PO DAILY 12/22/21 07/28/22 History aspirin 81 mg tablet,delayed 81 mg PO DAILY 07/28/22 07/28/22 History release cholecalciferol (vitamin D3) 25 25 mcg PO DAILY 07/28/22 07/28/22 History mcg (1,000 unit) capsule (Vitamin D3) coenzyme Q10 100 mg capsule 100 mg PO DAILY 07/28/22 07/28/22 History (CoQ-10) ezetimibe 10 mg tablet 10 mg PO DAILY 07/28/22 07/28/22 History famotidine 20 mg tablet (Acid 20 mg PO BID 07/28/22 07/28/22 History Controller) ferrous sulfate 325 mg (65 mg 325 mg PO Q OTHER DAY 07/28/22 07/28/22 History iron) tablet furosemide 40 mg tablet 40 mg PO DAILY 07/28/22 07/28/22 History glucosamine sulf dipot 2 cap PO DAILY 07/28/22 07/28/22 History chlr,msm,chond 550 mg-C 30 mg-geo 1 mg capsule (Glucosamine Chondroitin) lutein 20 mg tablet 20 mg PO DAILY 07/28/22 07/28/22 History metoprolol succinate 100 mg 100 mg PO DAILY 07/28/22 07/28/22 History tablet,extended release 24 hr multivitamin 1 tab PO DAILY 07/28/22 07/28/22 History omega-3 fatty acids-fish oil 684 1 cap PO DAILY 07/28/22 07/28/22 History mg-1,200 mg capsule,delayed release Past Med/Surg History Medical History (Updated 07/28/22 @ 17:03 by Cory Meraz MD) Nephrolithiasis Urinary symptom or sign Surgical History (Updated 07/28/22 @ 18:22 by Sonal Bautista PA-C) Hx of dissecting abdominal aortic aneurysm repair Hx of heart artery stent S/P triple vessel bypass Family History (Updated 07/28/22 @ 18:23 by Sonal Bautista PA-C) Mother Thoracic aortic aneurysm Grandfather (Maternal) Heart disease Brother Heart disease Brother Heart disease Brother Heart disease Social History Smoking Status: Unknown if ever smoked Hx Alcohol Use: Yes Alcohol type: wine Hx Substance Use: No Preferred Language: Welsh Current Living Situation: Spouse Feels Safe at Home: Yes Review of Systems Review of Systems: Constitutional: No fever, sweats or chills Eyes: No diplopia, no worsening or blurred vision, + shimmering effect as per HPI. Currently no visual symptoms. ENT: normal hearing, no trouble swallowing Respiratory: No cough, sputum, dyspnea at rest or on exertion Cardiovascular: No chest pain, tightness or palpitations Abdomen: No pain, nausea, vomiting, diarrhea or constipation Musculoskeletal: No joint pain, calf pain, swelling Neurologic: No weakness, numbness/tingling, or balance problems Psychiatric: No anxiety or depression Skin: No rash or itch Physical Exam Physical Exam: General: awake, alert, no apparent distress, + obese Head: Normocephalic, atraumatic ENT: PERRL, EOMI, no pharyngeal exudate, mucous membranes moist Chest: Clear to auscultation, on room air, no adventitious breath sounds Cardiac: Regular rate and rhythm, no murmur, no JVD, normal peripheral pulses, good capillary refill Abdominal: NABS x 4 quadrants, soft, nondistended, nontender to palpation, no rebound or guarding Extremities: Normal inspection, no peripheral edema or erythema, calfs nontender to palpation Psych: Normal mood and affect Neuro: AAO x 3, strength intact bilaterally and rated 5/5, no motor deficits, speech is clear, no peripheral sensory deficits Results & Data Results & Data ([facility]) Vital Signs (Past 12 Hours) Vital Signs Temp Pulse Pulse Resp BP BP Pulse Ox 07/28/22 17:04 71 16 160/100 H 99 07/28/22 16:03 77 18 98 07/28/22 15:34 74 18 166/97 H 98 07/28/22 15:05 36.9 C 66 19 150/93 H 98 O2 Del Method 07/28/22 17:04 Room Air 07/28/22 16:03 Room Air 07/28/22 15:34 Room Air 07/28/22 15:05 Room Air Laboratory Results 07/28/22 07/28/22 07/28/22 16:20 16:07 16:04 WBC RBC Hgb POC Hgb 13.3 L Hct POC Hct 39 L MCV MCH MCHC RDW Std Deviation RDW Coeff of Bertha Plt Count MPV PT INR APTT PTT Ratio POC Sodium 140 Sodium 139 POC Potassium 4.5 Potassium 4.6 POC Chloride 103 Chloride 104 Carbon Dioxide 28 POC Total CO2 29 Anion Gap 7 POC Anion Gap 14.0 L POC BUN 25 H BUN 24 H Creatinine 1.42 H POC Creatinine 1.6 H Est Cr Clr Drug Dosing Not Reportable Est GFR ( Amer) 56.8 Est GFR (Non-Af Amer) 49.0 BUN/Creatinine Ratio 16.9 Glucose 133 H POC Glucose (other) 126 H Calcium 8.9 POC Ioniz Calcium Michelle 1.13 Magnesium 1.8 Total Bilirubin 0.4 AST 22 ALT 17 Alkaline Phosphatase 51 Total Protein 6.4 Albumin 4.2 Globulin 2.2 L Albumin/Globulin Ratio 1.9 SARS-CoV-2, RNA, NAAT NEGATIVE 07/28/22 07/28/22 16:04 16:04 WBC 6.58 RBC 4.11 L Hgb 13.0 L POC Hgb Hct 40.3 POC Hct MCV 98.1 MCH 31.6 MCHC 32.3 RDW Std Deviation 54.0 H RDW Coeff of Bertha 14.9 H Plt Count 148 MPV 9.6 PT 11.2 INR 1.1 APTT 24.5 PTT Ratio 0.9 POC Sodium Sodium POC Potassium Potassium POC Chloride Chloride Carbon Dioxide POC Total CO2 Anion Gap POC Anion Gap POC BUN BUN Creatinine POC Creatinine Est Cr Clr Drug Dosing Est GFR ( Amer) Est GFR (Non-Af Amer) BUN/Creatinine Ratio Glucose POC Glucose (other) Calcium POC Ioniz Calcium Michelle Magnesium Total Bilirubin AST ALT Alkaline Phosphatase Total Protein Albumin Globulin Albumin/Globulin Ratio SARS-CoV-2, RNA, NAAT Diagnostic Findings Head CTA 07/28/22 16:13 CT angio neck with con, CT angio head wo/w CLINICAL HISTORY: 72 years-old Male with aphasia. Acute strokelike symptoms COMPARISON STUDY: None TECHNIQUE: Following the IV administration of Optiray, CT angiogram of the head and neck was performed from the aortic arch to the skull apex. Images are reviewed in the axial, sagittal, and coronal planes. 3-D MIPS images are created and assessed. IV contrast was administered without complication. Noncontrast head CT was also obtained. All measurements were calculated based on NASCET criteria. A dose lowering technique was utilized adhering to the principles of ALARA. CT DOSE: 1376.22 mGy.cm FINDINGS: CT HEAD: Age-related involutional changes. Mild white matter hypodensities suggest chronic microvascular ischemic disease. No acute intracranial hemorrhage, midline shift, abnormal extra-axial collection, hydrocephalus, acute territorial infarct or intracranial mass. No acute calvarial fracture. Metopic suture. Mastoid air cells and paranasal sinuses are clear. Unremarkable soft tissues. CTA HEAD AND NECK: Prior median sternotomy. There is a 1.2 x 1.7 cm saccular outpouching involving the thoracic aortic arch anteriorly on image 21 series 6 which may be postsurgical. Postoperative changes of the aortic arch. There is patency of the innominate and imaged subclavian arteries. Atherosclerosis of the patent common carotid arteries. Mild to moderate atherosclerotic plaque of the carotid bulbs and proximal cervical segments of the internal carotid arteries without high- grade stenosis. The middle and anterior cerebral arteries are patent. 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 Patent and codominant vertebral arteries. There is mild luminal narrowing at the origin of the left vertebral artery secondary to atherosclerotic plaque. The basilar and posterior cerebral arteries are patent. There is origin of the left posterior cerebral artery. Cerebral venous sinuses are patent. There is no abnormal intracranial enhancement. Lung apices are clear without pneumothorax. Unremarkable appearance of the soft tissues. Degenerative changes of the spine. IMPRESSION: 1. No acute intracranial abnormality. 2. Involutional changes with chronic microvascular ischemic disease. 3. CTA of the head and neck demonstrates no aneurysm, dissection, high-grade stenosis or arterial occlusion. 4. Additional findings as above. ACT 112: Negative or not required by law. The above report was generated using voice recognition software. It may contain grammatical, syntax or spelling errors. Electronically signed by: Elder Agudelo M.D. 07/28/2022 5:04 PM Neck CTA 07/28/22 16:13 CT angio neck with con, CT angio head wo/w CLINICAL HISTORY: 72 years-old Male with aphasia. Acute strokelike symptoms COMPARISON STUDY: None TECHNIQUE: Following the IV administration of Optiray, CT angiogram of the head and neck was performed from the aortic arch to the skull apex. Images are reviewed in the axial, sagittal, and coronal planes. 3-D MIPS images are created and assessed. IV contrast was administered without complication. Noncontrast head CT was also obtained. All measurements were calculated based on NASCET criteria. A dose lowering technique was utilized adhering to the principles of ALARA. CT DOSE: 1376.22 mGy.cm FINDINGS: CT HEAD: Age-related involutional changes. Mild white matter hypodensities suggest chronic microvascular ischemic disease. No acute intracranial hemorrhage, midline shift, abnormal extra-axial collection, hydrocephalus, acute territorial infarct or intracranial mass. No acute calvarial fracture. Metopic suture. Mastoid air cells and paranasal sinuses are clear. Unremarkable soft tissues. CTA HEAD AND NECK: Prior median sternotomy. There is a 1.2 x 1.7 cm saccular outpouching involving the thoracic aortic arch anteriorly on image 21 series 6 which may be postsurgical. Postoperative changes of the aortic arch. There is patency of the innominate and imaged subclavian arteries. Atherosclerosis of the patent common carotid arteries. Mild to moderate atherosclerotic plaque of the carotid bulbs and proximal cervical segments of the internal carotid arteries without high- grade stenosis. The middle and anterior cerebral arteries are patent. 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 Patent and codominant vertebral arteries. There is mild luminal narrowing at the origin of the left vertebral artery secondary to atherosclerotic plaque. The basilar and posterior cerebral arteries are patent. There is origin of the left posterior cerebral artery. Cerebral venous sinuses are patent. There is no abnormal intra cranial enhancement. Lung apices are clear without pneumothorax. Unremarkable appearance of the soft tissues. Degenerative changes of the spine. IMPRESSION: 1. No acute intracranial abnormality. 2. Involutional changes with chronic microvascular ischemic disease. 3. CTA of the head and neck demonstrates no aneurysm, dissection, high-grade stenosis or arterial occlusion. 4. Additional findings as above. ACT 112: Negative or not required by law. The above report was generated using voice recognition software. It may contain grammatical, syntax or spelling errors. Electronically signed by: Elder Agudelo M.D. 07/28/2022 5:04 PM Code Status & VTE Plan Code Status Full code Supervising Physician Co-Signing Physician Notes Patient was seen and examined with Sonal WHITNEY at bedside. Chart reviewed. Case discussed with her and agree with the documentation above with regards to HPI, PE, A/P and edited wherever necessary.
[2022-07-28] MEDS ORDERED: ASPIRIN CHEW 324 MG PO STA (17:57)
[2022-07-28] MEDS ORDERED: ATORVASTATIN 40 MG TAB PO STA (18:06)
[2022-07-28] MEDS ORDERED: CLOPIDOGREL BISULFATE 75 MG TAB PO ONE (18:06)
[2022-07-28] MEDS ORDERED: OPTIRAY 300 500mL IV ONE (19:14)
[2022-07-28] MEDS: SODIUM CHLORIDE 0.9% 500 ML IV SCH ×2 (19:54→23:57)
--- NOTE | 2022-07-28 19:59 | CT Scan Report ---
CT ANGIOGRAPHY OF THE CHEST CLINICAL HISTORY: Evaluate echodensity near aortic arch, cva symptoms. COMPARISON STUDY: Chest radiograph February 26, 2016. TECHNIQUE: Helical axial images of the chest were obtained during arterial phase following intravenou s injection of 113 cc Optiray 320 IV. Sagittal and coronal reconstructions were viewed as well as max imal intensity projections on an independent 3-D workstation. Automated exposure control was utilized for the study. A dose lowering technique was utilized adhering to the principles of ALARA. FINDINGS: Mild cardiomegaly is noted. There is extensive coronary calcification. Median sternotomy wi res are present. There is no pericardial effusion. Note is made of postoperative findings consistent with repair of the aortic root/ascending aorta extending to the level of the proximal aortic arch. Ao rta measures 4.1 cm at the level of the sinuses of Valsalva. Ascending aorta and the coronary arterie s are suboptimally assessed on this nongated exam. An apparent linear defect within the ascending aor ta level of the main pulmonary artery probably reflects a kink within the graft. Mild stranding adjac ent to the graft is likely postsurgical. There is a 1.2 cm outpouching of contrast along the left ant erior aspect of the ascending aorta, just distal to the level of the main pulmonary artery. No adjace nt hematoma is present. No central pulmonary embolus is present. There is no pneumothorax or pleural effusion. No consolidation is identified to suggest pneumonia. A 3 mm right lower lobe nodule on imag e 180 of 341 is likely benign. There is no pneumothorax or pleural effusion. No acute fracture or chelsea picious lesion within the bony thorax is noted. Old T6 compression deformity is present. A 1.3 cm mahesh culus within the upper pole of the right kidney is incidentally noted. Water attenuation lesions with in the upper pole of the right kidney favors cysts. These are incompletely imaged on this exam. IMPRESSION: 1. Status post graft repair of the aortic root and ascending aorta. No residual dissection. Patent gr eat vessels. Trace fluid and stranding adjacent to the graft is likely postsurgical. Mild tortuosity of the graft with slight kinking. Bandlike density of the proximal aortic arch favors postsurgical ch georgi although correlation with recent echo and prior postoperative CTA is recommended/ 2. 1.2 cm outpouching arising from left anterior aspect of the ascending aorta, just distal to the [place] of the main pulmonary artery. This is indeterminate although may reflect a small pseudoaneurysm. No adjacent hematoma. Alternately, this could be postsurgical and should be correlated with prior pos toperative CTA. 3. Mild cardiomegaly. Extensive coronary calcification. 4. No consolidation to suggest pneumonia. ACT 112: Negative or not required by law. Electronically signed by: Randy Newman M.D. 07/28/2022 7:58 PM
[2022-07-28] MEDS ORDERED: CYCLOBENZAPRINE HCL 10 MG TAB PO PRN (20:14)
[2022-07-28] MEDS ORDERED: NITROGLYCERIN SL 0.4 MG/TAB TAB SL PRN (20:14)
[2022-07-28] MEDS ORDERED: PHARMACIST DISCHARGE MED REC CONSULT PRN (20:14)
[2022-07-28] MEDS: FAMOTIDINE 20 MG TAB PO SCH (21:59)
[2022-07-28] MEDS ORDERED: LORazepam 0.25 MG in SYRINGE 0 ML IV ONE (23:55)
[2022-07-28] MEDS ORDERED: LORazepam 0.5 MG in SYRINGE 0 ML IV ONE (23:55)
[2022-07-29] MEDS: [UNRECOGNIZED DRUG - REMARK] SCH ×2 (00:07→12:47)
[2022-07-29] MEDS: SODIUM CHLORIDE 0.9% 500 ML IV SCH (04:05)
--- NOTE | 2022-07-29 07:10 | Magnetic Resonance Report ---
MRI OF THE BRAIN WITHOUT IV CONTRAST CLINICAL HISTORY: Strokelike symptoms. Visual changes. COMPARISON STUDY: CT of the brain dated 07/28/2022. TECHNIQUE: MRI of the brain was performed utilizing various T1 and T2-weighted sequences in the axial , sagittal, and coronal planes. IV contrast was not administered for this examination. FINDINGS: Brain parenchyma: There is age related involutional change noting minimal microangiopathic disease. T here is no hemorrhage or mass effect. There is no restricted diffusion to suggest acute ischemia. Gra y-white matter differentiation is preserved. No extra-axial fluid collection is seen. The cerebellar tonsils are normal in configuration. Ventricles, sulci, and cisterns: Prominent secondary to involutional change. Pituitary and sella: Unremarkable. Intracranial vasculature: Normal flow voids are maintained at the skull base. Orbits: The bony orbits are grossly intact. Orbital contents are normal in appearance. Sinuses and mastoids: Clear. Calvarium: Unremarkable. Cervical cord: Partially visualized cervical spinal cord is normal in morphology and signal intensity . IMPRESSION: No acute intracranial abnormality. ACT 112: Negative or not required by law. Electronically signed by: Vernon Taylor M.D. 07/29/2022 7:08 AM
[2022-07-29 07:37] LABS: Basophils # (auto) 0.02 K/uL (0-0.2); Basophils % (auto) 0.3 %; Eosinophils # (auto) 0.24 K/uL (0-0.50); Eosinophils % (auto) 3.3 %; Hematocrit (blood only) 39.8 % (40.1-51.0); Hemoglobin 13.4 g/dl (14.0-18.0); Immature Granulocytes # (auto) 0.02 K/uL (0.00-0.02); Immature Granulocytes % (auto) 0.3 %; Lymphocytes # (auto) 1.61 K/uL (1.2-3.4); Lymphocytes % (auto) 22.4 %; Mean Corpuscular Hemoglobin 32.3 pg (25.0-34.0); Mean Corpuscular Hgb Conc 33.7 g/dL (32.0-36.0); Mean Corpuscular Volume 95.9 fL (80.0-100.0); Mean Platelet Volume 9.2 fL (9.4-12.4); Monocytes % (auto) 8.4 %; Neutrophils # (auto) 4.69 K/uL (1.4-6.5); Neutrophils % (auto) 65.3 %; Platelet Count 141 K/uL (130-400); RDW Coefficient of Variation 14.9 % (11.5-14.5); RDW Standard Deviation 52.7 fL (36.4-46.3); Red Blood Count 4.15 M/uL (4.63-6.08); White Blood Count 7.18 K/ul (4.8-10.8)
[2022-07-29 08:06] LABS: BUN Creatinine Ratio 15.1 (10-20); Chol HDL Ratio 2.5 (0-5); Creatinine Clr Calc Pharmacy 76.3 ml/min; Est GFR (African American) 65.6 ml/min; Est GFR (Non-African American) 56.6 ml/min; Potassium 4.1 mmol/L (3.5-5.1)
[2022-07-29 08:10] LABS: Estimated Average Glucose 134 mg/dl; Hemoglobin A1C 6.3 % (4.5-5.6)
[2022-07-29] MEDS: FAMOTIDINE 20 MG TAB PO SCH (08:11)
[2022-07-29] MEDS ORDERED: ROSUVASTATIN CALCIUM 20 MG TAB PO SCH (09:00)
[2022-07-29] MEDS ORDERED: CHOLECALCIFEROL 1,000 UNITS 25 MCG TAB PO SCH (09:00)
[2022-07-29] MEDS ORDERED: FERROUS SULFATE 325 MG TAB PO SCH (09:00)
[2022-07-29] MEDS ORDERED: OMEGA-3 (PURIFIED FISH OIL) 1 GM CAP PO SCH (09:00)
[2022-07-29] MEDS ORDERED: EZETIMIBE 10 MG TABLET PO SCH (09:00)
[2022-07-29] MEDS ORDERED: ASPIRIN 81 MG ECTAB PO SCH (09:00)
[2022-07-29] MEDS ORDERED: MULTIVITAMIN TAB PO SCH (09:00)
[2022-07-29] MEDS ORDERED: NON-FORMULARY MEDICATION (Coenzyme Q10 [Coq-10] 100 mg Capsule) PO SCH (09:00)
[2022-07-29] MEDS ORDERED: FUROSEMIDE 20 MG TAB PO SCH (09:00)
[2022-07-29] MEDS ORDERED: NON-FORMULARY MEDICATION (Glucos Sul 2kcl-Msm-Chond-C-Mn [Glucosamine Chondroitin] 550-30- PO SCH (09:00)
[2022-07-29] MEDS ORDERED: CLOPIDOGREL BISULFATE 75 MG TAB PO SCH (09:00)
[2022-07-29] MEDS ORDERED: NON-FORMULARY MEDICATION (Lutein 20 mg Tablet) PO SCH (09:00)
[2022-07-29] MEDS ORDERED: METOPROLOL SUCC 50MG EXT REL TAB PO SCH (09:00)
--- NOTE | 2022-07-29 12:14 | Neurology Consultation ---
Date of Consultation July 29, 2022 Assessment & Plan (1) TIA (transient ischemic attack): Plan 72-year-old male presenting with transient aphasia, without associated hemiparesis. Symptoms consistent with TIA potentially localizing to the left cerebral hemisphere. No evidence of significant carotid vascular lesion. Patient does have several stroke risk factors including hyperlipidemia and hypertension. History also notable for coronary artery disease, surgical repair of aortic dissection this past December. A cardioembolic event is not completely excluded. No known history of atrial fibrillation, however. Recent surgical repair of aortic dissection. Aortic embolism not completely excluded. I agree with the addition of clopidogrel 75 mg/day to patient's medication regimen. Continue with dual antiplatelet therapy, daily low-dose aspirin, and Plavix, for the next 3 weeks, then transition to Plavix monotherapy, 75 mg/day. Continue with Crestor and Zetia. Permissive hypertension acceptable for today. Systolic blood pressure 140 to 160 mmHg. Would follow-up the results of recent Zio patch. May need to consider more prolonged outpatient cardiac monitoring. History of Present Illness Reason for Consultation: stroke sxs Requesting Physician: Sonal Bautista PA-C Attending Physician: Iraj De La Vega MD History of Present Illness The patient is a 72-year-old male who presented to the emergency department yesterday with a chief complaint of word finding difficulty, slurred speech, feeling off balance, beginning about an hour prior to arrival. He also complained of episodic vision disturbance, flashes of light, both eyes, no associated vision loss or ocular pain, intermittent issue over the previous year. No associated headache. Past medical history notable for hypertension and hyperlipidemia. He takes daily low-dose aspirin, Zetia, and Crestor as an outpatient. He has been modestly hypertensive in the context of this hospitalization. CT angiography of the head and neck was negative for acute abnormality, there was evidence of involutional change of chronic microvascular ischemic disease. No aneurysm, dissection, high-grade stenosis, or arterial dissection. An MRI of the brain was negative for acute abnormality. There was evidence of mild microvascular ischemic disease and mild generalized atrophy. I independently reviewed these images as well as the radiologist's interpretation of these tests. Past medical history is notable for CABG and surgical repair of aortic dissection this past December. No known history of atrial fibrillation. Patient reports resolution of his symptoms this morning. Allergies Allergy/AdvReac Type Severity Reaction Status Date / Time No Known Allergies Allergy Mild Verified 07/28/22 17:50 Home Medications Medication Instructions Recorded Confirmed Type cyclobenzaprine 10 mg tablet 10 mg PO BID PRN MUSCLE SPASMS 12/22/21 07/28/22 Hi story finasteride 1 mg tablet 1 mg PO DAILY 12/22/21 07/28/22 History nitroglycerin 0.4 mg sublingual 0.4 mg sublingual DAILY PRN Chest 12/22/21 07/28/22 History tablet Pain rosuvastatin 40 mg tablet (Crestor) 40 mg PO DAILY 12/22/21 07/28/22 History aspirin 81 mg tablet,delayed 81 mg PO DAILY 07/28/22 07/28/22 History release cholecalciferol (vitamin D3) 25 25 mcg PO DAILY 07/28/22 07/28/22 History mcg (1,000 unit) capsule (Vitamin D3) coenzyme Q10 100 mg capsule 100 mg PO DAILY 07/28/22 07/28/22 History (CoQ-10) ezetimibe 10 mg tablet 10 mg PO DAILY 07/28/22 07/28/22 History famotidine 20 mg tablet (Acid 20 mg PO BID 07/28/22 07/28/22 History Controller) ferrous sulfate 325 mg (65 mg 325 mg PO Q OTHER DAY 07/28/22 07/28/22 History iron) tablet furosemide 40 mg tablet 40 mg PO DAILY 07/28/22 07/28/22 History glucosamine sulf dipot 2 cap PO DAILY 07/28/22 07/28/22 History chlr,msm,chond 550 mg-C 30 mg-geo 1 mg capsule (Glucosamine Chondroitin) lutein 20 mg tablet 20 mg PO DAILY 07/28/22 07/28/22 History metoprolol succinate 100 mg 100 mg PO DAILY 07/28/22 07/28/22 History tablet,extended release 24 hr multivitamin 1 tab PO DAILY 07/28/22 07/28/22 History omega-3 fatty acids-fish oil 684 1 cap PO DAILY 07/28/22 07/28/22 History mg-1,200 mg capsule,delayed release Patient History Medical History Nephrolithiasis Urinary symptom or sign Surgical History Hx of dissecting abdominal aortic aneurysm repair Hx of heart artery stent S/P triple vessel bypass Family History Mother Thoracic aortic aneurysm Grandfather (Maternal) Heart disease Brother Heart disease Brother Heart disease Brother Heart disease Social History Smoking Status: Never smoker Second Hand Exposure: No; Do You Dip or Chew Tobacco: No; Tobacco Cessation Education Requested by Patient: No Hx Alcohol Use: Yes Alcohol type: beer Hx Substance Use: No Preferred Language: Polish Communication Ability: Effective Political Science Faculty Member Required: No Beliefs That Will Affect Care: None Current Living Situation: Spouse Other Information That Helps Us Care for You: No Feels Safe at Home: Yes Safety Concerns: Feels Safe At This Time Assistive Devices: None Review of Systems Constitutional: no fever and no chills Eyes: as per Subjective / HPI; no blind spots and no diplopia Ear, Nose, Mouth, Throat: no ear pain and no hearing loss Respiratory: no cough and no dyspnea Cardiovascular: no chest pain and no palpitations Gastrointestinal: no nausea and no vomiting Genitourinary: no dysuria or no urinary incontinence Musculoskeletal: no back pain, no neck pain and no myalgia Integumentary: no rash and no lesions Neurologic: as per Subjective / HPI Psychiatric: no depression and no anxiety Hematologic / Lymphatic: no easy bleeding and no easy bruising Exam (Neuro) Constitutional: well developed and well nourished; no acute distress Eyes: normal visual lehman by confrontation, PERRL, normal accommodation and EOM intact bilaterally; no fundoscopic abnormality, no nystagmus and no papilledema Cardiovascular: Vessels: normal carotid upstroke; no carotid bruit Neurologic: Oriented to:: Person, Place and Time Memory: Short Term Intact and Remote Intact Attention: Span Intact and Concentration Intact Language: Naming Objects and Repeating Phrases Speech Fluency: negative Dysarthria Speech Aphasia: negative Aphasia Fund of Knowledge: Current Events, Past History and Vocabulary Cranial Nerves: Normal II (Visual lehman full to confrontation, visual acuity normal), III, IV, (Pupils equal round reactive to light and accommodation, eye movements normal), V (Facial sensation intact), VII (There is no facial droop or weakness), VIII (Hearing intact), IX, X (Palate elevates to midline), XI (Shoulder shrug intact) and XII (Tongue protrudes to midline) Motor Strength: Normal Lower Extremities and Normal Upper Extremities; negative Pronator Drift Motor Tone: Normal Lower Extremities and Normal Upper Extremities Muscle Bulk/Involuntary Movements: No Involuntary Movements; negative Muscle Atrophy Sensation: Light Touch Intact, Pain/Temperature Intact, Vibration Intact and Proprioception Intact Coordination: Normal; negative Limited Balance, Dysdiadochokinesia, Finger-Nose Abnormal or Heel-Love Abnormal Deep Tendon Reflexes: Rt Triceps: 2+, Lt Triceps: 2+, Rt Biceps: 2+, Lt Biceps: 2+, Rt Brachioradialis: 2+, Lt Brachioradialis: 2+, Rt Patellar: 2+, Lt Patellar: 2+, Rt Ankle: 1+ and Lt Ankle: 1+ Special Tests: negative Babinski Present Gait: Normal Station and Gait Results & Data ([facility]) Vital Signs (Past 12 Hours) Vital Signs Temp Pulse Pulse Pulse Resp BP BP 07/29/22 06:14 82 07/29/22 11:28 37.3 C 80 20 143/89 H 07/29/22 08:16 36.8 C 91 H 20 150/96 H 07/29/22 03:06 36.6 C 73 18 146/95 H 07/28/22 23:59 79 152/99 H Pulse Ox O2 Del Method 07/29/22 06:14 07/29/22 11:28 94 Room Air 07/29/22 08:16 96 Room Air 07/29/22 03:06 95 Room Air 07/28/22 23:59 Laboratory Results WBC 7.18, hemoglobin 13.4, hematocrit 39.8, MCV 95.9, platelet count 141, ESR 26, sodium 137, potassium 4.1, BUN 19, creatinine 1.26, glucose 103, hemoglobin A1c 6.3, AST 22, ALT 17, high-sensitivity troponin 23.4, triglycerides 174, cholesterol 119, LDL 37, VLDL 35, HDL 47, SARS-CoV-[address] of the head, CT angiography of the head and neck, and brain MRI are as described in history of present illness. I independently reviewed these images as well as the radiology reports. Electrocardiogram revealed normal sinus rhythm with sinus arrhythmia, 76 bpm. An echocardiogram revealed normal left ventricular chamber size with mild concentric LVH, normal left ventricular systolic function, EF 55 to 60%. Septal motion consistent with postoperative state, otherwise normal. Grade 1 diastolic dysfunction. No evidence of atrial septal defect, no shunt with injection of contrast, left atrial size normal. CT angiogram of the chest revealed postsurgical changes involving the aortic root and ascending aorta, no residual dissection. 1.2 cm outpouching arising from the left anterior aspect of the ascending aorta potentially consistent with a small pseudoaneurysm. Coding Level of Care Code 69680 Initial In Care Lvl 3 Diagnoses TIA (transient ischemic attack) G45.9
--- NOTE | 2022-07-29 13:19 | Hospitalist Progress Note ---
Date of Service July 29, 2022 Assessment & Plan (1) Stroke-like symptoms: Plan: Transient ischemic attack --MRI Brain:No acute intracranial abnormality. --Head/Neck CTA: No acute intracranial abnormality. Involutional changes with chronic microvascular ischemic disease. CTA of the head and neck demonstrates no aneurysm, dissection, high-grade stenosis or arterial occlusion. --ECHO: Normal LV chamber size with mild concentric LVH. Left ventricle sys tolic function is normal. EF 55 to 60%. Septal motion consistent with postoperative state, otherwise normal wall motion. Grade 1 diastolic dysfunction. Reduced RV systolic function by TAPSE. Interatrial septum is intact with no evidence of ASD. --ZIO patch results pending (Done as outpatient) -- Continue aspirin, Plavix for 3 weeks and then transition to Plavix alone. Appreciate neurology input Continue Joni Mayes Needs follow-up with neurology as outpatient PT/OT, Speech eval completed (2) Coronary artery disease: (3) Hypertension: (4) Hyperlipidemia: Plan: -Hx of Triple bypass surgery, dissecting aorta in December 2021 status postrepair by cardiology -Continue antihypertensives Abnormal CT chest: H/O AAA S/P repair --CT Chest: Status post graft repair of the aortic root and ascending aorta. No residual dissection. Patent great vessels. Trace fluid and stranding adjacent to the graft is likely postsurgical. Mild tortuosity of the graft with slight kinking. Bandlike density of the proximal aortic arch favors postsurgical change although correlation with recent echo and prior postoperative CTA is recommended. 1.2 cm outpouching arising from left anterior aspect of the ascending aorta, just distal to the level of the main pulmonary artery. This is indeterminate although may reflect a small pseudoaneurysm. No adjacent hematoma. Alternately, this could be postsurgical and should be correlated with prior postoperative CTA. Mild cardiomegaly. Extensive coronary calcification. No consolidation to suggest pneumonia. --Patient follows with [facility] surgery at [facility] --Transmitted Images to [facility] --Currently he denies any chest pain, dyspnea --Advised to follow up with CT surgery as outpatient (5) Obesity: Plan: BMI:39 DVT Px: - teds, scds CODE STATUS: Full code Admission and Anticipated Discharge Date Admission Date: July 28, 2022 Subjective Patient is seen and examined at bedside Offers no complaints today Word finding difficulty, dizziness resolved Denies any chest pain, shortness of breath, nausea, abdominal pain Also denies any headache, change in vision, dysphagia Plan to be discharged home today. Review of Systems Review of Systems: All systems reviewed & are unremarkable except as noted in Subjective Physical Exam Physical Exam: Physical Exam: Vitals signs as noted above General Appearance:Obese, no apparent distress Head: normocephalic, Atraumatic Eyes: normal inspection, EOMI Neck: supple, Trachea midline Respiratory/Chest: Normal breath sounds, CTA, No accessory muscle use Cardiovascular: S1, S2, No murmur Abdomen/GI:Soft, Non tender, Bowel sounds present Extremities/Musculoskeletal:normal inspection, 1+ B/L LE edema Neurologic/Psych:AAOX3, grossly no focal neurological deficits Skin: normal color, warm, +CABG scar Results & Data Results & Data ([facility]) Vital Signs (Past 12 Hours) Vital Signs Temp Pulse Pulse Resp BP Pulse Ox O2 Del Method 07/29/22 06:14 82 07/29/22 11:28 37.3 C 80 20 143/89 H 94 Room Air 07/29/22 08:16 36.8 C 91 H 20 150/96 H 96 Room Air 07/29/22 03:06 36.6 C 73 18 146/95 H 95 Room Air Laboratory Results Short CBC 07/28/22 07/29/22 Range/Units 16:04 07:22 WBC 6.58 7.18 (4.8-10.8) K/ul Hgb 13.0 L 13.4 L (14.0-18.0) g/dl Hct 40.3 39.8 L (40.1-51.0) % Plt Count 148 141 (130-400) K/uL BMP 07/28/22 07/29/22 16:04 07:22 Sodium 139 137 Potassium 4.6 4.1 Chloride 104 104 Carbon Dioxide 28 26 BUN 24 H 19 Creatinine 1.42 H 1.26 Glucose 133 H 103 H Calcium 8.9 9.0 Liver Function 07/28/22 Range/Units 16:04 Total Bilirubin 0.4 (0.2-1.0) mg/dl AST 22 (13-39) U/L ALT 17 (7-52) U/L Alkaline Phosphatase 51 (34-104) U/L Albumin 4.2 (3.4-5.0) gm/dl
[2022-07-29] MEDS ORDERED: STROKE PATIENT DISCHARGE STA (13:52)
--- NOTE | 2022-07-29 14:18 | Pharmacy Report ---
Pharmacist Stroke Counseling - Date of Service July 29, 2022 - Scope: Pharmacy has been consulted to provide medication discharge counseling for this patient admitted with transient ischemic attack as per the Pharmacist Discharge Counseling for Stroke Patients Protocol. - Medications on Discharge: Home Medications Medication Instructions Recorded Confirmed cyclobenzaprine 10 mg tablet 10 mg PO BID PRN MUSCLE SPASMS 12/22/21 07/28/22 finasteride 1 mg tablet 1 mg PO DAILY 12/22/21 07/28/22 nitroglycerin 0.4 mg sublingual 0.4 mg sublingual DAILY PRN Chest 12/22/21 07/28/22 tablet Pain rosuvastatin 40 mg tablet (Crestor) 40 mg PO DAILY 12/22/21 07/28/22 aspirin 81 mg tablet,delayed 81 mg PO DAILY 07/28/22 07/28/22 release cholecalciferol (vitamin D3) 25 25 mcg PO DAILY 07/28/22 07/28/22 mcg (1,000 unit) capsule (Vitamin D3) coenzyme Q10 100 mg capsule 100 mg PO DAILY 07/28/22 07/28/22 (CoQ-10) ezetimibe 10 mg tablet 10 mg PO DAILY 07/28/22 07/28/22 famotidine 20 mg tablet (Acid 20 mg PO BID 07/28/22 07/28/22 Controller) ferrous sulfate 325 mg (65 mg 325 mg PO Q OTHER DAY 07/28/22 07/28/22 iron) tablet furosemide 40 mg tablet 40 mg PO DAILY 07/28/22 07/28/22 glucosamine sulf dipot 2 cap PO DAILY 07/28/22 07/28/22 chlr,msm,chond 550 mg-C 30 mg-geo 1 mg capsule (Glucosamine Chondroitin) lutein 20 mg tablet 20 mg PO DAILY 07/28/22 07/28/22 metoprolol succinate 100 mg 100 mg PO DAILY 07/28/22 07/28/22 tablet,extended release 24 hr multivitamin 1 tab PO DAILY 07/28/22 07/28/22 omega-3 fatty acids-fish oil 684 1 cap PO DAILY 07/28/22 07/28/22 mg-1,200 mg capsule,delayed release New Rx's Medication Instructions Recorded clopidogrel 75 mg tablet 75 mg PO QAM #30 tabs 07/29/22 - Action: The above medications, specifically ones for stroke prophylaxis, have been reviewed in detail with the patient and/or patient loan representative(s) prior to discharge. This includes indication, common adverse reactions, drug interactions, and medication administration. Medication counseling has been employed using the teach-back method to ensure understanding. - Outcome: The patient demonstrated understanding of the medications. Additional comments: N/A. Thank you for allowing pharmacy to be involved in the care of this patient. Please call [phone] with any additional questions
--- NOTE | 2022-07-29 15:17 | Discharge Summary ---
Date of Service July 29, 2022 Admission HPI Per Admitting Provider This is a 72-year-old male with PMHx of CAD with remote coronary intervention with JOSELYN to RCA in Sep 2006, HTN, HLD, obesity, hx of prostate cancer, nephrolithiasis, GERD, vitamin D deficiency. Pt presents with strokelike symptoms including word finding difficulty and dizziness. He was having difficult finishing a sentence and pronouncing words, couldnt say what he wanted to say. This occurred between 2-230pm and lasted for a few minutes. He did not notice any facial drooping or strength discrepancies. This has never happened before. He also notes that he has had visual issues, calling it "shimmering" in both eyes, over the last 3 to 4 weeks but recently sought out ophthalmology appointment and was told that his eyes did not have any issues with them. He recently wore a ZIO monitor under instruction by CHELO in cardiology, as an outpatient due to the visual changes. It has not been read yet as it was just mailed this past . He notes he recently had an ECHO, and LVEF was 55% but nothing else was mentioned to him. Pt does not know of any history of atrial fibrillation or atrial flutter. His symptoms at this point time have completely resolved. CTA of the head and neck are negative for any acute findings. [id number] normal weight at home. Took his normally scheduled medication today. Denies alcohol use or tobacco use. Admission Exam Per Admitting Provider Physical Exam Physical Exam: General: awake, alert, no apparent distress, + obese Head: Normocephalic, atraumatic ENT: PERRL, EOMI, no pharyngeal exudate, mucous membranes moist Chest: Clear to auscultation, on room air, no adventitious breath sounds Cardiac: Regular rate and rhythm, no murmur, no JVD, normal peripheral pulses, good capillary refill Abdominal: NABS x 4 quadrants, soft, nondistended, nontender to palpation, no rebound or guarding Extremities: Normal inspection, no peripheral edema or erythema, calfs nontender to palpation Psych: Normal mood and affect Neuro: AAO x 3, strength intact bilaterally and rated 5/5, no motor deficits, speech is clear, no peripheral sensory deficits Principal Diagnosis Transient Ischemic attack Discharge Data Allergies Allergy/AdvReac Type Severity Reaction Status Date / Time No Known Allergies Allergy Mild Verified 07/28/22 17:50 Consultations 07/28/22 17:57 ED Decision to Admit Stat 07/28/22 18:05 Consult Neurology Routine Ordered Studies 07/28/22 16:13 CT angio head wo/w Stat CT angio neck with con Stat 07/28/22 18:37 CT angio chest w con Stat 07/29/22 00:25 MR brain wo con Routine Hospital Course (1) Stroke-like symptoms: Transient ischemic attack --MRI Brain:No acute intracranial abnormality. --Head/Neck CTA: No acute intracranial abnormality. Involutional changes with chronic microvascular ischemic disease. CTA of the head and neck demonstrates no aneurysm, dissection, high-grade stenosis or arterial occlusion. --ECHO: Normal LV chamber size with mild concentric LVH. Left ventricle systolic function is normal. EF 55 to 60%. Septal motion consistent with postoperative state, otherwise normal wall motion. Grade 1 diastolic dysfunction. Reduced RV systolic function by TAPSE. Interatrial septum is intact with no evidence of ASD. --ZIO patch results pending (Done as outpatient) -- Continue aspirin, Plavix for 3 weeks and then transition to Plavix alone. Appreciate neurology input Continue Joni Mayes Needs follow-up with neurology as outpatient PT/OT, Speech eval completed (2) Coronary artery disease: (3) Hypertension: (4) Hyperlipidemia: -Hx of Triple bypass surgery, dissecting aorta in December 2021 status postrepair by cardiology -Continue antihypertensives Abnormal CT chest: H/O AAA S/P repair --CT Chest: Status post graft repair of the aortic root and ascending aorta. No residual dissection. Patent great vessels. Trace fluid and stranding adjacent to the graft is likely postsurgical. Mild tortuosity of the graft with slight kinking. Bandlike density of the proximal aortic arch favors postsurgical change although correlation with recent echo and prior postoperative CTA is recommended. 1.2 cm outpouching arising from left anterior aspect of the ascending aorta, just distal to the level of the main pulmonary artery. This is indeterminate although may reflect a small pseudoaneurysm. No adjacent hematoma. Alternately, this could be postsurgical and should be correlated with prior postoperative CTA. Mild cardiomegaly. Extensive coronary calcification. No consolidation to suggest pneumonia. --Patient follows with CT surgery at [facility] --Transmitted Images to [facility] --Currently he denies any chest pain, dyspnea --Advised to follow up with CT surgery as outpatient (5) Obesity: BMI:39 DVT Px: - teds, scds CODE STATUS: Full code Total Time Total Time Spent Total Time Spent (In Minutes): 40 minutes Discharge Plan Discharge Items Patient Disposition: Home - Self-Care Reason For Visit: CVA SYMPTOMS Discharge Diagnosis: Transient Ischemic attack Activity: Per Instructions section Exercise/Sports: Gradually increase as tolerated Non-emergency contact: Primary Care Provider, Surgeon and Neurologist Call non-emergency contact if: you have any medication questions, your symptoms worsen, your pain is concerning for you and you have a fever Follow-up/Referrals: Jordon Mccormack MD [Primary Care Provider] - 08/04/22 2:40 pm Diet: Heart Healthy Addtl Attending Provider Instructions: Follow-up with your primary care physician Dr. Mccormack in 1 week as advised Follow-up with your neurologist in 3-4 weeks. Follow up with your CT surgeon at [facility], to further discuss about the abnormal CT chest finding as advised. ----Take aspirin 81 mg and clopidogrel (Plavix) 75 mg daily for 3 weeks and then transition to Clopidogrel (Plavix) alone as recommended by your neurologist. --Follow-up on your recent Zio patch results and discuss with your physician for further management. Seek immediate medical attention if your symptoms reoccur or worsen Please take all medications as instructed on discharge list below. Please call if you have any questions or problems. You can reach a [facility] hospitalist on duty at [facility] 24 hours a day by calling [phone] Risk Factors for Stroke: You can reduce your chances of stroke by working with your medical provider to adopt a healthy lifestyle. Some specific ways to lower your chance of stroke are: * If you are a smoker, now is the time to stop smoking cigarettes * If you are diabetic, improve the control of your blood sugars * Avoid excessive amounts of alcohol * Control high blood pressure * Lose weight if you are overweight * Be sure to lead an active lifestyle * Eat a healthy diet low in salt, cholesterol and fat You should know about other risk factors for stroke that you are unable to control. These include: * Age 55 years or older * Male gender * Certain racial groups: , or / * Family History of Stroke, Mini stroke or Heart Attack * Sickle Cell Disease Follow Up: It is important for you to keep your follow up appointments with your medical provider. Who to Call and When: Medical Emergencies: Call 911 immediately if you experience any of the following warning signs and symptoms of Stroke: * Sudden numbness or weakness of the face, arm or leg, especially on one side of the body * Sudden confusion, trouble speaking or understanding * Sudden trouble seeing in one or both eyes * Sudden trouble walking, dizziness, loss of balance or coordination * Sudden severe headache with no cause Do not delay calling 911 if you experience any warning signs or symptoms of a stroke. Delay in seeking medical attention may affect what treatments can be given to you. . Pending Studies at Discharge: No Stand-Alone Forms: Medications to Prevent Stroke, My [facility], Smoking Cessation Medications and DC Order Prescriptions: New clopidogrel 75 mg Tablet 75 mg PO QAM Qty: 30 1RF Continued cyclobenzaprine 10 mg Tablet 10 mg PO BID PRN (Reason: MUSCLE SPASMS) nitroglycerin 0.4 mg Tablet, Sublingual 0.4 mg sublingual DAILY PRN (Reason: Chest Pain) finasteride 1 mg Tablet 1 mg PO DAILY rosuvastatin [Crestor] 40 mg Tablet 40 mg PO DAILY ferrous sulfate 325 mg (65 mg iron) Tablet 325 mg PO Q OTHER DAY ezetimibe 10 mg tablet 10 mg PO DAILY lutein 20 mg Tablet 20 mg PO DAILY Rx Instructions: give with meal/snack multivitamin Tablet 1 tab PO DAILY metoprolol succinate 100 mg tablet extended release 24 hr 100 mg PO DAILY aspirin 81 mg Tablet,Delayed Release (Dr/Ec) 81 mg PO DAILY famotidine [Acid Controller] 20 mg Tablet 20 mg PO BID cholecalciferol (vitamin D3) [Vitamin D3] 25 mcg (1,000 unit) Capsule 25 mcg PO DAILY coenzyme Q10 [CoQ-10] 100 mg Capsule 100 mg PO DAILY omega-3 fatty acids-fish oil 684-1,200 mg Capsule,Delayed Release(Dr/Ec) 1 cap PO DAILY Glucosamine Chondroitin 550-30-1 mg Capsule 2 cap PO DAILY furosemide 40 mg tablet 40 mg PO DAILY Discharge Orders: Discharge Order (Routine); Ordered 07/29/22 Ordered By: Iraj Clifton/Other Patient Handouts: Prediabetes, 5 Steps for Eating Healthier Admission Data Admit Date/Time: 07/28/22 18:05 Attending Provider: Iraj De La Vega Admit Provider: Mike Montero Primary Care Provider: Jordon Mccormack Other Providers: Mike Montero ; Freddy Mooney Other Interventions: Discharge Summary Assessment (RN) Last Done: 07/29/22 14:40
== END 2022-07-29 15:11 | disposition home or self-care (01) ==
LOC: 2N 15:03 → ED 15:03 → SUATTDRO 18:05 → 2N 19:54
DX: Z79.82 Long term (current) use of aspirin; Z95.1 Presence of aortocoronary bypass graft; Z79.899 Other long term (current) drug therapy; E66.9 Obesity, unspecified; G45.9 Transient cerebral ischemic attack, unspecified; Z68.39 Body mass index [BMI] 39.0-39.9, adult